=== PATIENT | female | born 1935 | race Caucasian/White ===

== ENCOUNTER 2016-02-27 15:22 | Inpatient (IN) | payer OTHER, BC ==
[~2016-02-27] VITALS: Ht 152.4 cm; Wt 110.1 kg
[~2016-02-27 15:22] MED LIST: APIX1TAB3 PO; ASMIN/60 INH; CALC600T37 PO; CHOL100027 PO; DRON400T PO; METO25TA3 PO; RED600TA PO; TRAM-10 PO
[2016-02-27] MEDS ORDERED: ASMIN/60 INH (16:07)
[2016-02-27] MEDS ORDERED: ASPI81TA28 PO (16:07)
[2016-02-27 16:12] LABS: BASO % 0.3 %; BASO ABS # 0.03 K/uL (0-0.2); COMPLETE YES; EOS % 0.2 %; HEMATOCRIT 29.7 % (37-47); IG% 0.3 %; LYMPH % 11.5 %; MEAN CELL VOLUME 93.4 fL (80-100); MEAN CORPUSCULAR HEMOGLOBIN 29.2 pg (25-34); MEAN CORPUSCULAR HGB CONC 31.3 g/dl (32-36); MEAN PLATELET VOLUME 10.3 fL (7.4-10.4); MONO % 7.6 %; NEUT % 80.1 %; PLATELET COUNT 203 K/uL (130-400); RED BLOOD COUNT 3.18 M/uL (4.2-5.4)
[2016-02-27 16:51] LABS: ALKALINE PHOSPHATASE 72 U/L (45-117); ALT/SGPT 18 U/L (12-78); AST/SGOT 18 U/L (15-37); BLOOD UREA NITROGEN 33 mg/dl (7-18); BUN/CREATININE RATIO 39.1 (10-20); CALCIUM 8.9 mg/dl (8.5-10.1); CARBON DIOXIDE 29 mmol/L (21-32); CHLORIDE 105 mmol/L (98-107); CKMB/CK RATIO 3.6 (0-3.0); CREATININE 0.84 mg/dl (0.60-1.20); GLUCOSE 95 mg/dl (70-99); POTASSIUM 4.1 mmol/L (3.5-5.1); SODIUM 142 mmol/L (136-145)
--- NOTE | 2016-02-27 17:33 | EMERGENCY ROOM VISIT NOTE ---
History Report prepared by Paulo: Alannah Guillermo Under the Supervision of: Dr. Ruben Hudson D.O. First contact with patient: 15:23 Chief Complaint: RECTAL BLEEDING Stated Complaint: RECTAL BLEEDING, RED & SWOLLEN LEGS History of Present Illness The patient is a 80 year old female who presents to the Emergency Room with complaints of persistent rectal bleeding that began yesterday morning. She states that she had three bouts of rectal bleeding today, noting bright red clots. The patient states that she is noting a large amount of blood with bowel movement. She states that one week ago she had home health come in had physical therapy. The patient states that since then she has had left hip and left leg pain. She states that she has had difficulty ambulating due to the pain. The patient states that her home health nurses wanted her leg checked out due to her pain. The patient states that she is on Eloquis for atrial fibrillation and also 81 mg of Aspirin. She states that her last dose of Eloquis was this morning at 1000. The patient states that her rectal bleeding started after a hard bowel movement. Source of History: patient Onset: yesterday morning Position: other (rectal) Quality: other (bleeding) Timing: other (persistent) Note: Associated Symptoms: left hip pain, left leg pain. Review of Systems See HPI for pertinent positives & negatives. A total of 10 systems reviewed and were otherwise negative. Past Medical & Surgical Medical Problems: (1) A-fib (2) Anemia (3) Anemia (4) Anemia (5) Anemia (6) Asthma (7) Bursitis of shoulder, left (8) Hyperparathyroidism (9) Radicular pain in left arm (10) UTI (lower urinary tract infection) Family History No significant family history Social History Smoking Status: Never Smoker Alcohol Use: none Drug Use: none Marital Status: Housing Status: lives alone Occupation Status: retired Current/Historical Medications Scheduled Apixaban (Eliquis), 5 MG PO BID Aspirin (Aspirin Ec), 81 MG PO DAILY Calcium (Calcium), 600 MG PO BID Cholecalciferol (Vitamin D 1000 Unit), 1,000 INTER.UNIT PO DAILY Dronedarone Hcl (Multaq), 400 MG PO BID Mometasone Furoate (Asmanex Twisthaler 60 Met), 1 PUFF INH BID Red Yeast Rice Extract (Red Yeast Rice), 600 MG PO BID Scheduled PRN Tramadol (Ultram), 50 MG PO Q4H PRN for Pain Allergies Coded Allergies: Adhesives (Unverified Allergy, Mild, RASH, 02/27/16) Nitrofurantoin (Unverified Allergy, Mild, RASH, 02/27/16) Sulfa Drugs (Verified Allergy, Mild, 02/27/16) Iodinated Diagnostic Agents (Unverified Allergy, Unknown, RASH, 02/27/16) Uncoded Allergies: TINCTURES (Allergy, Mild, RASH, 12/02/15) Physical Exam Vital Signs Date Time Temp Pulse Resp B/P Pulse Ox O2 Delivery O2 Flow Rate FiO2 02/27/16 16:01 71 02/27/16 15:32 36.4 84 16 143/68 97 Room Air Physical Exam CONSTITUTIONAL/VITAL SIGNS: Reviewed / noted above. GENERAL: Non-toxic in appearance. INTEGUMENTARY: Warm, dry, and [place]. HEAD: Normocephalic. EYES: without scleral icterus or trauma. ENT/OROPHARYNX: clear and moist. LYMPHADENOPATHY/NECK: Is supple without lymphadenopathy or meningismus. RESPIRATORY: Lungs clear and equal. CARDIOVASCULAR: Regular rate and rhythm. GI/ABDOMEN: Soft and nontender. No organomegaly or pulsatile mass. No rebound or guarding. Normal bowel sounds. EXTREMITIES: Warm and well perfused. BACK: No CVA tenderness. RECTAL: Reveals dark brown stool, minimal bleeding at the rectum, likely from hemorrhoids. NEUROLOGICAL: Intact without focal deficits. PSYCHIATRIC: normal affect. MUSCULOSKELETAL: Normally developed with good muscle tone. Medical Decision & Procedures ER Provider Diagnostic Interpretation: X ray results and stated below per my interpretation and radiology interpretation. CHEST ONE VIEW PORTABLE HISTORY: blood in stools COMPARISON: Chest 01/31/2016. FINDINGS: There are low lung volumes. No pneumothorax. Metallic stent overlies the heart. The heart is mildly enlarged. No pleural effusions. Prior cholecystectomy. Mild central pulmonary vascular congestion without overt edema. A few linear densities at the left midlung zone favor subsegmental atelectasis or scarring. IMPRESSION: 1. Stable mild cardiomegaly. 2. Mild central pulmonary vascular congestion without overt edema. Electronically signed by: Mina James M.D. 02/27/2016 5:59 PM Dictated Date/Time: 02/27/2016 5:58 PM Laboratory Results 02/27/16 16:00 Red Blood Count 3.18, Mean Corpuscular Volume 93.4, Mean Corpuscular Hemoglobin 29.2, Mean Corpuscular Hemoglobin Concent 31.3, Mean Platelet Volume 10.3, Neutrophils (%) (Auto) 80.1, Lymphocytes (%) (Auto) 11.5, Monocytes (%) (Auto) 7.6, Eosinophils (%) (Auto) 0.2, Basophils (%) (Auto) 0.3, Neutrophils # (Auto) 8.33, Lymphocytes # (Auto) 1.20, Monocytes # (Auto) 0.79, Eosinophils # (Auto) 0.02, Basophils # (Auto) 0.03 02/27/16 16:00 Test 02/27/16 16:00 02/27/16 17:15 White Blood Count 10.40 K/uL (4.8-10.8) Red Blood Count 3.18 M/uL (4.2-5.4) Hemoglobin 9.3 g/dL (12.0-16.0) Hematocrit 29.7 % (37-47) Mean Corpuscular Volume 93.4 fL (80-100) Mean Corpuscular Hemoglobin 29.2 pg (25-34) Mean Corpuscular Hemoglobin Concent 31.3 g/dl (32-36) Platelet Count 203 K/uL (130-400) Mean Platelet Volume 10.3 fL (7.4-10.4) Neutrophils (%) (Auto) 80.1 % Lymphocytes (%) (Auto) 11.5 % Monocytes (%) (Auto) 7.6 % Eosinophils (%) (Auto) 0.2 % Basophils (%) (Auto) 0.3 % Neutrophils # (Auto) 8.33 K/uL (1.4-6.5) Lymphocytes # (Auto) 1.20 K/uL (1.2-3.4) Monocytes # (Auto) 0.79 K/uL (0.11-0.59) Eosinophils # (Auto) 0.02 K/uL (0-0.5) Basophils # (Auto) 0.03 K/uL (0-0.2) RDW Standard Deviation 58.5 fL (36.4-46.3) RDW Coefficient of Variation 17.2 % (11.5-14.5) Immature Granulocyte % (Auto) 0.3 % Immature Granulocyte # (Auto) 0.03 K/uL (0.00-0.02) Anion Gap 8.0 mmol/L (3-11) Est Creatinine Clear Calc Drug Dose 64.1 ml/min Estimated GFR () 77.2 Estimated GFR (Non- 66.6 BUN/Creatinine Ratio 39.1 (10-20) Calcium Level 8.9 mg/dl (8.5-10.1) Total Bilirubin 0.5 mg/dl (0.2-1) Direct Bilirubin mg/dl (0-0.2) Aspartate Amino Transf (AST/SGOT) 18 U/L (15-37) Alanine Aminotransferase (ALT/SGPT) 18 U/L (12-78) Alkaline Phosphatase 72 U/L (45-117) Total Creatine Kinase 47 U/L (26-192) Creatine Kinase MB 1.7 ng/ml (0.5-3.6) Creatine Kinase MB Ratio 3.6 (0-3.0) Troponin I 0.092 ng/ml (0-0.045) Total Protein 7.1 gm/dl (6.4-8.2) Albumin 3.1 gm/dl (3.4-5.0) Chemistry Specimen Hemolysis Prothrombin Time 12.8 SECONDS (9.0-12.0) Prothromb Time International Ratio 1.2 (0.9-1.1) Activated Partial Thromboplast Time 26.1 SECONDS (21.0-31.0) Partial Thromboplastin Ratio 1.0 Laboratory results as stated above per my review. Medications Administered Medications (Trade) Dose Ordered Sig/Stewart Route Start Time Stop Time Status Last Admin Dose Admin Oxycodone/ Acetaminophen (Percocet 5-325mg Tab) 1 tab NOW ONCE PO 02/27/16 17:45 02/27/16 17:46 DC 02/27/16 17:43 1 TAB ECG Indication: other (hx of atrial fibrillation) Rate (beats per minute): 78 Rhythm: sinus rhythm Findings: LBBB, PAC Comparison ECG Date: 01/07/16 Change: When compared to EKG on 01/07/16, the left bundle branch block is new. ED Course 1524: Previous medical records were reviewed. The patient was evaluated in room B8. A complete history and physical examination was performed. 1707: I reevaluated the patient and she denies any chest pain or trouble breathing, but notes knee pain. I discussed all the exam findings with her and I discussed the treatment plan. She verbalized complete understanding and agreement. She will be evaluated for further treatment. 1715: I discussed the patients case with TREY Vega. He is going to evaluate the patient for further treatment. 1745: Ordered Oxycodone/Acetaminophen 1 tab PO. Medical Decision Differential diagnosis: Etiologies such as diverticulosis, AVM, coagulopathy, colitis, inflammatory bowel disease, malignancy, [place] tear, esophagitis, peptic ulcer disease , variceal bleed, gastritis, epistaxis, fissure, hemorrhoids, as well as others were entertained. This is a 80-year-old female who presents to the ED with a chief complaint of rectal bleeding per the patient states that she seemed to be little constipated yesterday morning and moved her bowels. Since that time she has had some intermittent rectal bleeding. She has had about 3 episodes today. She has also stated that she seen some clots. The patient denies any other significant symptoms. She denies any lightheadedness or dizziness. No chest pains or shortness of breath. Her exam was fairly unremarkable. She does have a rectal exam that appears to show stool in the rectal vault. It is light brown. She does have some gross blood on rectal exam as well. My suspicion is that her bleeding is coming from hemorrhoids. Blood work reveals a stable hemoglobin of 9.3. Her chemistry panel was unremarkable. A troponin was elevated at 0.092. An EKG shows a new left bundle-branch block compared to a previous one. The patient again was assessed and denied chest pains or shortness of breath or any cardiac type symptoms. I spoke with the hospitalist, who will see the patient for further inpatient evaluation. Consults Time Called: 1714 Consulting Physician: TREY Vega Returned Call: [phone] I discussed the patients case with TREY Vega. He is going to evaluate the patient for further treatment. Impression Primary Impression: Elevated troponin Additional Impressions: New onset left bundle branch block (LBBB) Rectal bleed Scribe Attestation The scribe's documentation has been prepared under my direction and personally reviewed by me in its entirety. I confirm that the note above accurately reflects all work, treatment, procedures, and medical decision making performed by me. Departure Information Dispostion Being Evaluated By Hospitalist Referrals Xavi Campbell M.D. (PCP) Problem Qualifiers
[2016-02-27] MEDS ORDERED: OXYCODONE/ACETAMINOPHEN 5-325 TAB PO ONE (17:45)
[2016-02-27 17:48] LABS: INR 1.2 (0.9-1.1); PROTHROMBIN TIME (PATIENT) 12.8 SECONDS (9.0-12.0)
--- NOTE | 2016-02-27 18:01 | DIAGNOSTIC IMAGING REPORT ---
CHEST ONE VIEW PORTABLE HISTORY: blood in stools COMPARISON: Chest 01/31/2016. FINDINGS: There are low lung volumes. No pneumothorax. Metallic stent overlies the heart. The heart is mildly enlarged. No pleural effusions. Prior cholecystectomy. Mild central pulmonary vascular congestion without overt edema. A few linear densities at the left midlung zone favor subsegmental atelectasis or scarring. IMPRESSION: 1. Stable mild cardiomegaly. 2. Mild central pulmonary vascular congestion without overt edema. Electronically signed by: Mina James M.D. 02/27/2016 5:59 PM Dictated Date/Time: 02/27/2016 5:58 PM
[2016-02-27] MEDS ORDERED: POLYETHYLENE (MIRALAX) 17 GM PACK PO PRN (19:00)
[2016-02-27] MEDS ORDERED: ACETAMINOPHEN 325 MG TAB PO PRN (19:00)
[2016-02-27] MEDS ORDERED: NITROGLYCERIN 0.4 MG SL PER TAB CHARGE SL PRN (19:00)
[2016-02-27] MEDS ORDERED: ONDANSETRON INJ 2 MG/ML 2 ML VIAL IV PRN (19:00)
--- NOTE | 2016-02-27 20:06 | DIAGNOSTIC IMAGING REPORT ---
LEFT KNEE 3 VIEWS HISTORY: RED AND SWOLLEN LEGS, LEFT KNEE PAIN COMPARISON: None. FINDINGS: There is no fracture or dislocation. Soft tissue edema throughout the visualized left lower extremity. There are tricompartmental marginal osteophytes with mild cartilage space narrowing at the medial and patellofemoral compartments. There is moderate to severe cartilage space narrowing at the lateral compartment. No significant knee effusion. The bones are osteopenic. No radiopaque foreign bodies. IMPRESSION: 1. No acute fracture or dislocation within the left knee. 2. 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 3. Diffuse subcutaneous edema within the left knee. Electronically signed by: Mina James M.D. 02/27/2016 8:04 PM Dictated Date/Time: 02/27/2016 8:01 PM
[2016-02-27 20:51] VITALS: BP 152/86; PULSE 64; TEMP 36.9; O2SAT 93; Ht 152.4 cm; Wt 110.1 kg
[2016-02-27] MEDS ORDERED: RED YEAST RICE EXTRACT PO SCH (21:00)
[2016-02-27] MEDS: MOMETASONE FUROATE 14 PUFF/1 INHALER INH SCH (22:15)
[2016-02-27] MEDS: DRONEDARONE 400 MG TAB PO SCH (22:15)
[2016-02-27] MEDS: CALCIUM 600MG + VIT D 400 IU TAB PO SCH (22:15)
--- NOTE | 2016-02-27 22:16 | HISTORY & PHYSICAL EXAMINATION ---
DATE OF ADMISSION: 02/27/2016 PCP: Dr. Xavi Campbell. CHIEF COMPLAINT: Left knee pain and rectal bleeding. HISTORY OF PRESENT ILLNESS: Ms. Santos is a 80-year-old lady who underwent TAVR on 01/23/2016. She also has a history of atrial fibrillation, maintained in sinus rhythm on Multaq and anticoagulated with Eliquis, as well as a history of asthma. She is presenting to the Emergency Department complaining of progressively worsening left leg pain that she says really is in the knee over the past approximately 1 month. She mentions that during her TAVR procedure, she apparently had a laceration to the artery in her leg, requiring some repair prior to the procedure. She says after she went home, she continued to have some pain in the extremity which she says has slowly gone from the groin area down the anterior part of her thigh now. At this point, she is complaining only of knee pain, she thinks the knee is swollen to "twice as big as it usually is." She is also complaining of bright red blood per rectum that began yesterday after having a hard bowel movement. She says she had been constipated for the few days prior to this and believes that she may have damaged a hemorrhoid. She mentions in the past she has had hemorrhoids and is also known to have diverticular disease. She continued to take her Eliquis as well as aspirin over the preceding 2 days. Aside from that, the patient denies any recent fever, chills, malaise. She denies any chest pain, palpitation, shortness of breath or cough. Denies any abdominal pain, nausea, vomiting or diarrhea. She denies any hematemesis or melena. She denies any increase in her lower extremity edema. Denies any dysuria, hematuria or increased frequency. She denies any new rash. Her workup in the Emergency Department included basic labs with a CBC showing white blood cell count of 10,400 with 80% neutrophils. Her hemoglobin is 9.3, hematocrit 29.7, which is approximately her baseline H\\T\\H. Platelets were 203,000. Her chemistries showed a sodium of 142, potassium 4.1, chloride 105, bicarbonate 29, BUN was 33, creatinine 0.8, glucose was 95, calcium 8.9, albumin 3.1, protein 7.1, alkaline phosphatase 72, ALT 18, AST 18, total bilirubin 0.5. Her troponin was elevated at 0.092 with a CPK of 47, CK-MB was 1.7. PT was 12.84 for an INR of 1.2, PTT was 26.1. She did have a chest x-ray which the radiologist is reading as showing stable mild cardiomegaly as well as mild central pulmonary vascular congestion without overt edema. Her EKG shows sinus rhythm with a rate of 70 beats per minute and there is a left bundle-branch block pattern present which is not present on an EKG from 01/07/2016. At this point, the patient is being admitted for further workup and management. ALLERGIES: 1. SULFA DRUGS. 2. NITROFURANTOIN. 3. IODINATED RADIOCONTRAST DYE. 4. TINCTURES. 5. ADHESIVES. HOME MEDICATIONS: Include: 1. Multaq 400 mg p.o. twice daily. 2. Eliquis 5 mg p.o. b.i.d. 3. Aspirin 81 mg p.o. daily. 4. Calcium. 5. Vitamin D. 6. Asmanex. 7. Red yeast rice extract. 8. Tramadol p.r.n. for pain. PAST MEDICAL HISTORY: Includes: 1. Atrial fibrillation, on Multaq and anticoagulated with Eliquis. 2. 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 3. Cardiac catheterization in November 2015 showing mild CAD without any critical lesions. 4. Asthma. 5. Morbid obesity. 6. Osteoarthritis. FAMILY HISTORY: Includes premature CAD in her father and both maternal and paternal grandfathers. SOCIAL HISTORY: The patient lives at home alone. She is generally independent but does have someone come to the house to clean for her. She does have visiting nurses as well as visiting PT and OT since her valve replacement in January. She is a lifelong nonsmoker. She does not abuse alcohol or illicit drugs. 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 REVIEW OF SYSTEMS: A 14-system review was conducted and was found to be completely negative except as otherwise indicated above in the history of present illness. PHYSICAL EXAMINATION: VITAL SIGNS: Currently show a temperature of 36.4, pulse 66 and normal sinus on the monitor, respiratory rate 17, oxygen saturation 94% on room air, blood pressure is 173/91. GENERAL: The patient is awake, alert, oriented. She is in no acute distress. HEENT: Sclerae are nonicteric. Mucous membranes are moist. NECK: Trachea is midline. It is difficult to appreciate JVD given the patient's body habitus. RESPIRATORY: Breath sounds are diminished in the bases, I suspect due to body habitus and poor effort. Otherwise, the lungs are essentially clear and she is not in any respiratory distress. CARDIOVASCULAR: S1 and S2 are heard though they are distant. I do not appreciate any murmur. ABDOMEN: Soft, obese, nontender. Bowel sounds are heard. EXTREMITIES: Warm and there is 3+ edema in bilateral lower extremities. There is evidence of chronic venous stasis dermatitis skin changes. MUSCULOSKELETAL: There is no chest wall tenderness. It is difficult to assess the knees due to the patient's body habitus though she does appear to be tender, I really cannot appreciate any effusion. There is no other evidence for acute arthritis in any of the large or small joints aside from the left knee. NEUROLOGIC: The patient is awake and alert. There are no obvious focal deficits. Gait was not assessed. PSYCHIATRIC: The patient is calm and cooperative. She exhibits a normal mood and affect. DIAGNOSTIC INVESTIGATIONS: Labs, imaging and EKG were reviewed as outlined above in the history of present illness. ASSESSMENT AND PLAN: 1. Suspected lower gastrointestinal bleed. The differential includes most likely hemorrhoidal bleeding, would also include diverticular disease. Less likely would include ischemic colitis, peptic ulcer disease, arteriovenous malformation, etc. She reports having multiple previous colonoscopies showing diverticular disease as well as hemorrhoids but otherwise no abnormal findings. At this time, would hold her Eliquis and aspirin. We will repeat an H\\T\\H later this evening and again in the morning. If her hemoglobin remains stable and she has no further bleeding, we will restart her Eliquis and aspirin in the morning and no further GI workup will be pursued. Further recommendations based on her clinical progression. 2. Elevated troponin and a new left bundle-branch block. This patient is presenting with a mildly elevated troponin, she has had no symptoms that could be attributed to acute coronary syndrome. It is possible that her EKG and elevated troponin are due to acute coronary syndrome and at this point we will trend troponin overnight. We will check an echocardiogram in the morning. Further recommendations based on her clinical progress. 3. Left knee pain. We will check an x-ray. The differential would include osteoarthritis versus crystal arthritis versus other, including hemarthrosis. We will continue on her usual home tramadol. 4. Asthma. This is stable and not in exacerbation. We will continue her usual Asmanex. 5. Atrial fibrillation. She is in sinus rhythm on the monitor. We will continue her Multaq, we will be holding Eliquis given GI bleeding. This will be restarted as soon as possible. 6. Mild nonobstructive coronary artery disease on catheterization in November 2015. The patient has been on aspirin which will be held for tonight, hopefully this can be restarted tomorrow. She is not on a statin due to intolerance but is on red rice yeast extract. 7. Deep venous thrombosis prophylaxis is not necessary. She did take Eliquis today. We will institute SCDs if she has a prolonged period without her anticoagulation. 8. Disposition: Admit to telemetry. Total time spent preparing this history and physical was 50 minutes.
[2016-02-27 22:23] LABS: HEMATOCRIT 26.6 % (37-47)
[2016-02-28] VITALS: BP 134/72; PULSE 60; TEMP 36.6; O2SAT 95
[2016-02-28 03:29] VITALS: BP 137/82; PULSE 56; TEMP 36.5; O2SAT 96
[2016-02-28 07:43] VITALS: BP 151/77; PULSE 53; TEMP 36.5; O2SAT 97
[2016-02-28 07:49] LABS: BASO % 0.4 %; BASO ABS # 0.03 K/uL (0-0.2); EOS % 0.6 %; HEMATOCRIT 27.7 % (37-47); IG% 0.4 %; LYMPH % 29.1 %; LYMPH ABS # 2.31 K/uL (1.2-3.4); MEAN CELL VOLUME 94.5 fL (80-100); MEAN CORPUSCULAR HEMOGLOBIN 29.4 pg (25-34); MEAN PLATELET VOLUME 10.7 fL (7.4-10.4); MONO % 6.7 %; NEUT % 62.8 %; PLATELET COUNT 171 K/uL (130-400); RED BLOOD COUNT 2.93 M/uL (4.2-5.4); WHITE BLOOD COUNT 7.94 K/uL (4.8-10.8)
[2016-02-28] MEDS: MOMETASONE FUROATE 14 PUFF/1 INHALER INH SCH ×2 (07:52→20:10)
[2016-02-28] MEDS: CHOLECALCIFEROL 1000 INTER.UNIT TAB PO SCH (07:53)
[2016-02-28] MEDS: DRONEDARONE 400 MG TAB PO SCH ×2 (07:53→20:09)
[2016-02-28] MEDS: CALCIUM 600MG + VIT D 400 IU TAB PO SCH ×2 (07:53→20:09)
[2016-02-28 08:16] LABS: COMPLETE YES
[2016-02-28 08:19] LABS: BUN/CREATININE RATIO 34.1 (10-20); CREATININE 0.71 mg/dl (0.60-1.20); POTASSIUM 3.9 mmol/L (3.5-5.1)
[2016-02-28] MEDS: TRAMADOL HCL 50 MG TAB PO PRN ×3 (09:57→21:05)
[2016-02-28 11:43] VITALS: BP 149/70; PULSE 59; TEMP 36.6; O2SAT 96
--- NOTE | 2016-02-28 13:56 | ECHOCARDIOGRAM REPORT ---
*NOTICE TO RECEIVING REPUBLICAN AGENCY This information is strictly Confidential and protected under [place] law. [place] law prohibits you from making any further disclosure of this information unless further disclosure is expressly permitted by the written consent of the person to whom it pertains or is authorized by law. A general authorization for the release of medical or other information is not sufficient for this purpose. Hospital accepts no responsibility if the information is made available to any other person, INCLUDING THE PATIENT. Interpretation Summary * Name: ARUN ANDREWS Study Date: 02/28/2016 10:19 AM BP: 151/77 mmHg * Patient Location: C.2T\S\S240\S\2 HR: 53 * : 1935 (M/d/yyyy) Gender: Female Height: 60 in * Age: 80 yrs Ethnicity: [place] Weight: 250 lb * Ordering Physician: Ruben Blake * Referring Physician: Self, Referred * Performed By: Rell Montero RCS * * Reason For Study: AMI * BSA: 2.1 m2 * -- Conclusions -- * 1. Normal left ventricular size and systolic function. EF 60-65%. No regional wall motion abnormalities. No left ventricular hypertrophy. Type 2 diastolic dysfunction. * 2. Bioprosthetic aortic valve with acceptable gradients. * 3. There is mild mitral regurgitation. * 4. Normal estimated right ventricular systolic pressure; RVSP 22 mmHg. * 5. Compared to prior study on 01/15/2009, bioprosthetic aortic valve is now present. Procedure Details * A complete two-dimensional transthoracic echocardiogram was performed (2D, M-mode, Doppler and color flow Doppler). * Patient was supine for imaging Left Ventricle * Normal left ventricular size and systolic function. EF 60-65%. No regional wall motion abnormalities. No left ventricular hypertrophy. Type 2 diastolic dysfunction. * Ejection Fraction = 60-65%. Right Ventricle * The right ventricle is normal in size and function. * The right ventricular systolic function is normal as assessed by tricuspid annular plane systolic excursion (TAPSE) (normal >1.5 cm). Atria * The left atrial size is normal. * Right atrial size is normal. * There is no evidence of atrial septal defect, but resolution does not allow assessment for a patent foramen ovale. Mitral Valve * There is mild to moderate mitral annular calcification. * There is no mitral valve stenosis. * There is mild mitral regurgitation. Tricuspid Valve * The tricuspid valve is not well visualized, but is grossly normal. * There is no tricuspid stenosis. * Significant tricuspid regurgitation is absent. Aortic Valve * Bioprosthetic aortic valve with acceptable gradients. * No hemodynamically significant valvular aortic stenosis. * There is no significant aortic regurgitation. Pulmonic Valve * The pulmonary valve is inadequately visualized, but the Doppler data is adequate for interpretation. * There is no pulmonic valvular stenosis. * Trace pulmonic valvular regurgitation. Great Vessels * The aortic root is normal size. Pericardium/Pleural * There is no pericardial effusion. Great Vessels * Normal inferior vena cava size and collapsability with sniff indicates a normal right atrial pressure of 3 mmHg MMode 2D Measurements and Calculations IVSd 1.1 cm IVSs 1.5 cm LVIDd 4.9 cm LVIDs 3.0 cm LVPWd 1.0 cm LVPWs 1.5 cm IVS/LVPW 1.1 FS 39.6 % EDV(Teich) 113.5 ml ESV(Teich) 34.0 ml EF(Teich) 70.0 % EDV(cubed) 118.6 ml ESV(cubed) 26.1 ml EF(cubed) 78.0 % % IVS thick 29.0 % % LVPW thick 47.6 % LV mass(C)d 196.0 grams LV mass(C)dI 95.5 grams/m\S\2 LV mass(C)s 153.2 grams LV mass(C)sI 74.6 grams/m\S\2 CO(Teich) 4.7 l/min CI(Teich) 2.3 l/min/m\S\2 SV(Teich) 79.5 ml SI(Teich) 38.7 ml/m\S\2 CO(cubed) 5.5 l/min CI(cubed) 2.7 l/min/m\S\2 SV(cubed) 92.5 ml SI(cubed) 45.1 ml/m\S\2 Ao root diam 3.1 cm Ao root area 7.7 cm\S\2 LA dimension 4.1 cm asc Aorta Diam 3.3 cm LA/Ao 1.3 LVAd ap4 34.5 cm\S\2 LVLd ap4 8.5 cm EDV(MOD-sp4) 116.0 ml LVAs ap4 16.3 cm\S\2 LVLs ap4 6.2 cm ESV(MOD-sp4) 37.0 ml EF(MOD-sp4) 68.1 % LVAd ap2 34.3 cm\S\2 LVLd ap2 8.5 cm EDV(MOD-sp2) 118.0 ml LVAs ap2 18.5 cm\S\2 LVLs ap2 6.7 cm ESV(MOD-sp2) 44.0 ml EF(MOD-sp2) 62.7 % CO(MOD-sp4) 4.7 l/min CI(MOD-sp4) 2.3 l/min/m\S\2 SV(MOD-sp4) 79.0 ml SI(MOD-sp4) 38.5 ml/m\S\2 CO(MOD-sp2) 4.4 l/min CI(MOD-sp2) 2.1 l/min/m\S\2 SV(MOD-sp2) 74.0 ml SI(MOD-sp2) 36.1 ml/m\S\2 Doppler Measurements and Calculations MV E max adalgisa 125.9 cm/sec MV A max adalgisa 146.2 cm/sec MV E/A 0.86 MV V2 max 150.8 cm/sec MV max PG 9.1 mmHg MV V2 mean 82.0 cm/sec MV mean PG 3.2 mmHg MV V2 VTI 49.7 cm MV P1/2t max adalgisa 149.0 cm/sec MV P1/2t 95.1 msec MVA(P1/2t) 2.3 cm\S\2 MV dec slope 458.8 cm/sec\S\2 MV dec time 0.34 sec Ao V2 max 284.1 cm/sec Ao max PG 32.3 mmHg Ao max PG (full) 24.9 mmHg Ao V2 mean 172.4 cm/sec Ao mean PG 14.0 mmHg Ao mean PG (full) 10.0 mmHg Ao V2 VTI 58.9 cm LV V1 max PG 7.4 mmHg LV V1 mean PG 4.0 mmHg LV V1 max 135.7 cm/sec LV V1 mean 94.5 cm/sec LV V1 VTI 31.6 cm SV(Ao) 455.2 ml SI(Ao) 221.8 ml/m\S\2 TV E max adalgisa 44.4 cm/sec PA V2 max 104.3 cm/sec PA max PG 4.4 mmHg TR max adalgisa 217.2 cm/sec RVSP(TR) 22.0 mmHg RAP systole 3.0 mmHg
[2016-02-28 15:44] VITALS: BP 138/72; PULSE 55; TEMP 36.7; O2SAT 96
--- NOTE | 2016-02-28 16:32 | DIAGNOSTIC IMAGING REPORT ---
BILATERAL LOWER EXTREMITY VENOUS DOPPLER CLINICAL HISTORY: Bilateral leg swelling. Left leg pain status post surgery. COMPARISON STUDY: Right lower extremity venous Doppler April 01, 2012 TECHNIQUE: Sonography of the deep venous system of the bilateral lower extremities was performed. Compression and augmentation were evaluated. FINDINGS: The bilateral common femoral, superficial femoral and popliteal veins were compressible. Augmentation was normal. Flow was shown within the deep calf vessels although evaluation was compromised by suboptimal penetration and lower extremity edema. IMPRESSION: No evidence of deep venous thrombus within the bilateral lower extremities. Electronically signed by: Broderick Treadwell M.D. 02/28/2016 4:30 PM Dictated Date/Time: 02/28/2016 4:29 PM
--- NOTE | 2016-02-28 16:56 | Hospitalist Progress Note ---
Hospitalist Progress Note Date of Service Feb 28, 2016. Subjective Pt evaluation today including: conversation w/ patient, physical exam, chart review, lab review, review of studies, conversation w/ program consultant, review of inpatient medication list Pain: Still c/o severe left knee pain Medications Current Inpatient Medications Medications (Trade) Dose Ordered Sig/Stewart Route Start Time Stop Time Status Last Admin Dose Admin Cholecalciferol (Vitamin D Tab) 1,000 inter.unit DAILY PO 02/28/16 09:00 03/29/16 08:59 02/28/16 07:53 1,000 INTER.UNIT Dronedarone (Multaq Tab) 400 mg BID PO 02/27/16 21:00 03/28/16 20:59 02/28/16 07:53 400 MG Mometasone Furoate (Asmanex 220MCG Inh) 1 puff BID INH 02/27/16 21:00 03/28/16 20:59 02/28/16 07:52 1 PUFF Tramadol HCl (Ultram Tab) 50 mg Q4H PRN PO 02/27/16 19:00 03/28/16 18:59 02/28/16 14:37 50 MG Calcium/Vitamin D (Caltrate Plus Tab) 1 tab BID PO 02/27/16 21:00 03/28/16 20:59 02/28/16 07:53 1 TAB Acetaminophen (Tylenol Tab) 650 mg Q4H PRN PO 02/27/16 19:00 03/28/16 18:59 Ondansetron HCl (Zofran Inj) 4 mg Q6H PRN IV 02/27/16 19:00 03/28/16 18:59 Nitroglycerin (Nitrostat Tab) 0.4 mg UD PRN SL 02/27/16 19:00 03/28/16 18:59 Polyethylene (Miralax Powder Packet) 17 gm DAILY PRN PO 02/27/16 19:00 03/28/16 18:59 Aspirin 81 mg 81 mg QAM PO 02/29/16 09:00 03/30/16 08:59 Furosemide/Syringe (Lasix Inj/ Syringe) 4 ml @ 4 mls/min DAILY IV 02/29/16 09:00 03/30/16 08:59 Warfarin Sodium (Coumadin Tab) 5 mg DAILY@16 PO 02/28/16 16:00 03/29/16 15:59 Objective Vital Signs Date Time Temp Pulse Resp B/P Pulse Ox O2 Delivery O2 Flow Rate FiO2 02/28/16 15:44 36.7 55 18 138/72 96 02/28/16 12:00 Room Air 02/28/16 11:43 36.6 59 18 149/70 96 Room Air 02/28/16 08:00 Room Air 02/28/16 07:43 36.5 53 18 151/77 97 Room Air 02/28/16 04:00 Room Air 02/28/16 03:29 36.5 56 18 137/82 96 Room Air 02/28/16 00:00 Room Air 02/28/16 00:00 36.6 60 18 134/72 95 Room Air 02/27/16 20:51 36.9 64 16 152/86 93 Room Air 02/27/16 19:50 74 16 164/74 96 02/27/16 18:26 66 17 173/91 94 Room Air Physical Exam General Appearance: no apparent distress Eyes: sclerae normal Respiratory/Chest: + pertinent finding (breath sounds diminished in the bases, few crackles above) Cardiovascular: regular rate, rhythm Abdomen: non tender, soft Extremities: + pedal edema Neurologic/Psychiatric: alert, oriented x 3 Laboratory Results Last 24 Hours Test 02/27/16 17:15 02/27/16 22:12 02/28/16 06:53 Prothrombin Time 12.8 SECONDS Prothromb Time International Ratio 1.2 Activated Partial Thromboplast Time 26.1 SECONDS Partial Thromboplastin Ratio 1.0 Hemoglobin 8.5 g/dL 8.6 g/dL Hematocrit 26.6 % 27.7 % Troponin I 0.229 ng/ml 0.635 ng/ml White Blood Count 7.94 K/uL Red Blood Count 2.93 M/uL Mean Corpuscular Volume 94.5 fL Mean Corpuscular Hemoglobin 29.4 pg Mean Corpuscular Hemoglobin Concent 31.0 g/dl Platelet Count 171 K/uL Mean Platelet Volume 10.7 fL Neutrophils (%) (Auto) 62.8 % Lymphocytes (%) (Auto) 29.1 % Monocytes (%) (Auto) 6.7 % Eosinophils (%) (Auto) 0.6 % Basophils (%) (Auto) 0.4 % Neutrophils # (Auto) 4.99 K/uL Lymphocytes # (Auto) 2.31 K/uL Monocytes # (Auto) 0.53 K/uL Eosinophils # (Auto) 0.05 K/uL Basophils # (Auto) 0.03 K/uL RDW Standard Deviation 60.3 fL RDW Coefficient of Variation 17.5 % Immature Granulocyte % (Auto) 0.4 % Immature Granulocyte # (Auto) 0.03 K/uL Red Blood Cell Morphology Unremarkable Sodium Level 143 mmol/L Potassium Level 3.9 mmol/L Chloride Level 106 mmol/L Carbon Dioxide Level 30 mmol/L Anion Gap 7.0 mmol/L Blood Urea Nitrogen 24 mg/dl Creatinine 0.71 mg/dl Est Creatinine Clear Calc Drug Dose 75.1 ml/min Estimated GFR () 94.6 Estimated GFR (Non- 81.6 BUN/Creatinine Ratio 34.1 Random Glucose 76 mg/dl Calcium Level 9.0 mg/dl Assessment and Plan (1) Acute lower GI hemorrhage Assessment & Plan: H&H stable. No further bleeding. Was likely hemorrhoidal. OK to restart anticoagulation. (2) Elevated troponin Assessment & Plan: Likely of not significant. No wall motion abnormalities on echo (3) A-fib Assessment & Plan: She remains in NSR. Per Cardio, will switch to warfarin because of AVR and interaction of Eliquis with Multaq. (4) Left knee DJD Assessment & Plan: Will ask Ortho to eval and consider intra-articular steroids if they agree pain is from OA (5) Asthma Assessment & Plan: Stable, not exacerbated. Continue Asmanex and p.r.n. albuterol. Continued [facility] stay due to: multiple IV medications needed Discharge planning: home with home health
--- NOTE | 2016-02-28 17:00 | CARDIOLOGY CONSULTATION ---
DATE OF CONSULTATION: 02/28/2016 CONSULTING PHYSICIAN: Dr. Ruben Blake. REASON FOR CONSULTATION: Elevated troponin. PRIMARY ADMISSION NURSE: Dr. Pino Ackerman. HISTORY OF PRESENT ILLNESS: Ms. Santos is a pleasant 80-year-old female with a history significant for aortic stenosis status post TAVR on 01/23/2016 at [facility]. She also has a history of paroxysmal atrial fibrillation on antiarrhythmic therapy and anticoagulation in the form of Eliquis. She also has a history of venous insufficiency/lymphedema, asthma, anemia, dyslipidemia. She came to the Emergency Department yesterday due to ongoing left knee pain as well as bright red blood per rectum. She was being visited by home nursing and stated that her left knee hurt. This left knee pain has been present ever since her TAVR on 01/23/2016 and it has failed to improve over the past 10 days. She has had increasing lower extremity edema as well bilaterally, but she believes that her left leg is worse than her right. She apparently did have some vascular injury or some bleeding in her left femoral artery during the TAVR procedure according to her report. She was prescribed Lasix by Dr. Ackerman in January 2016 to be used on an every other day basis. She forgot the directions on how to use Lasix and therefore took it for 10 days and then stopped taking it altogether. She also noted bright red blood per rectum for the past 1.5 days. This has resolved this morning, however. She believes it could be from hemorrhoids and apparently has had diverticulosis diagnosed in the past. When asked about sodium consumption, she stated "I eat my share." She does not add salt to food, but does not necessarily reads labels. She believes that she has lost weight in the past few days. In Emergency Department, troponin levels were ordered and noted to be slightly elevated. They were then cycled overnight and thus far has peaked at 0.635. She denies any chest pain, shortness of breath, orthopnea, syncope, near syncope, palpitations. She had a cardiac catheterization done prior to her TAVR in November 2015 with nonobstructive CAD. During this hospitalization, aspirin and Eliquis have been held, due to the bleeding. REVIEW OF SYSTEMS: As above and review of systems is otherwise negative. PAST MEDICAL HISTORY: 1. Left bundle-branch block following TAVR. 2. Aortic stenosis, status post TAVR on 01/23/2016 at [facility]. 3. Nonobstructive CAD. 4. Dyslipidemia. 5. Chronic lower extremity edema from venous insufficiency and possibly lymphedema. She had been followed at lymphedema clinic in the past. 6. Asthma. 7. Paroxysmal atrial fibrillation, on anticoagulation therapy and antiarrhythmic therapy. 8. Obesity. 9. Osteoporosis. 10. Recurrent UTI. 11. Vitamin D deficiency. 12. Arthritis. 13. Anemia. HOME MEDICATIONS: Include Multaq 400 mg twice daily, red yeast rice, Eliquis 5 mg twice daily, tramadol, aspirin 81 mg daily, Asmanex and Lasix 20 mg every other day; however, she has not been taking it. INPATIENT MEDICATIONS: Include aspirin 81 mg daily, Multaq 400 mg p.o. b.i.d. ALLERGIES: ADHESIVES, IV DYE, NITROFURANTOIN, SULFA ANTIBIOTICS AND TINCTURES. SOCIAL HISTORY: Denies tobacco, alcohol or drug use. She is a . Three children; however, they are not in close contact with her. She does have a granddaughter that checks in on her frequently. She also has great grandchildren. She lives home alone. FAMILY HISTORY: Father at 56 from myocardial infarction. Both grandfathers in their 40s from myocardial infarction. PHYSICAL EXAMINATION: VITAL SIGNS: Temperature 36.6 degrees, heart rate 59 beats per minute, respiration rate 18, blood pressure 149/70 mmHg, oxygen saturation 96% on room air, weight 113.8 kilograms. GENERAL: No acute distress. She is alert. HEENT: Anicteric sclerae. NECK: Elevated JVD shelter to the mandible. Hepatojugular reflux noted. No bruits. Normal carotid upstrokes bilaterally. CARDIAC EXAMINATION: PMI was nonpalpable. There was no ventricular heave. Regular, normal S1, S2. A 1/6 early peaking systolic ejection murmur best heard at the right upper sternal border. No rubs or gallops. LUNGS: Bibasilar rales, otherwise clear. ABDOMEN: Soft, nontender, nondistended, normoactive bowel sounds, no bruits noted. Obese. EXTREMITIES: 2+ radial pulses bilaterally. 2+ dorsalis pedis pulses bilaterally. No cyanosis. Chronic venous stasis changes noted in bilateral lower extremities. 2+ pedal edema and edema involving her feet bilaterally. 1+ bilateral pitting edema above the ankles to the knees. PSYCHIATRIC: Affect appears appropriate. ECG personally reviewed upon presentation demonstrating sinus rhythm with PACs and left bundle-branch block. Left bundle-branch block is new compared to prior ECG here on 01/07/2016; however, left bundle-branch block, was described following her TAVR. Telemetry personally reviewed. Intermittent junctional rhythm. Echocardiogram images were personally reviewed. Normal LV size and systolic function. EF 60%-65%. No regional wall motion abnormalities. Type 2 diastolic dysfunction. Bioprosthetic aortic valve with acceptable gradients. Mild MR. RVSP 22. LABORATORY DATA: Sodium 143, potassium 3.9, BUN 24, creatinine 0.7, troponin 0.635, AST 18, ALT 18. Abdomen 3.1. WBC 7.9, hemoglobin 8.6, was 9.3 on presentation. INR 1.2. Chest x-ray image personally reviewed. Increased vascular markings. Radiology has reviewed the chest x-ray, stable cardiomegaly and central pulmonary vascular congestion without overt edema. ASSESSMENT AND PLAN: 1. Elevated troponins: Etiology uncertain. She did not present with acute coronary syndrome and does not have severe coronary artery disease. She had mild nonobstructive disease noted on November 2015 on cardiac catheterization. Without symptoms concerning for angina or acute coronary syndrome, would not pursue further ischemic evaluation. It could be demand ischemia from worsening anemia. She also appears to be hypervolemic. Not likely to have pulmonary emboli secondary to Eliquis. However, she does have left lower extremity pain and therefore an ultrasound will be checked to definitively rule out deep venous thrombosis. 2. Hypervolemia: She does have a history of venous insufficiency and has not been taking Lasix as prescribed. She also has dietary indiscretion in regards to her sodium consumption. Recommend Lasix 40 mg IV now. Would also discharge on oral Lasix as per Dr. Ackerman's original plan. We discussed low sodium diet and daily weights. 3. Bioprosthetic aortic valve: Would resume antiplatelet therapy in the form of aspirin 81 mg daily now. She has not had any further bright red blood per rectum. Subacute bacterial endocarditis prophylaxis. She is aware of this. Valve appeared to be functioning appropriately on echocardiogram. 4. Paroxysmal atrial fibrillation: Sinus rhythm with intermittent junctional rhythm when bradycardic. Can continue Multaq. Given her bioprosthetic aortic valve would recommend Coumadin in place of Eliquis. She has been on Coumadin in the past. She was agreeable to resume Coumadin in place of Eliquis. Also, Multaq can increase the potency of Eliquis and since she presented with gastrointestinal bleeding, Coumadin may be a better option if she is to remain on Multaq. Will start Coumadin 5 mg daily tonight. She appeared to be relatively well controlled on 5 mg Thursday, Thursday, Thursday with 2.5 mg all other days when she last took Coumadin in 2014. Start with 5 mg while hospitalized; however. 5. Gastrointestinal bleed: As per primary service. Resuming Coumadin today; however, she will not be therapeutic for a few days. 6. Coronary artery disease: She has nonobstructive coronary artery disease. Cardiac catheterization report was reviewed. It demonstrated a mid left anterior descending 20%-30% and ostial obtuse marginal 1 at 40% with proximal right coronary artery 20%-30% and mid right coronary artery 20%. Resume aspirin therapy as above. If no contraindications, would recommend high intensity statin therapy; however, she apparently is intolerant to statin therapy. 7. Hypertension: She is currently hypertensive. Lasix ordered as above, which may improve her blood pressure. 8. Left knee pain: Etiology uncertain. There may have been some bleeding from her procedure. Ultrasound will be ordered to further evaluate. 9. Disposition: Plan of care was discussed with Dr. Blake of the hospitalist service. Cardiology will continue to follow. She should follow up with Dr. Ackerman upon discharge. Thank you for allowing me to participate in care of Ms. Santos.
[2016-02-28] MEDS ORDERED: FUROSEMIDE 40 MG/4 ML VIAL ONE (17:02)
[2016-02-28] MEDS: WARFARIN SOD 5 MG TAB PO SCH (17:05)
[2016-02-28] MEDS: FUROSEMIDE INJ 40 MG in SYRINGE 0 ML IV SCH ×2 (17:05→17:10)
[2016-02-28 19:52] VITALS: BP 147/80; PULSE 62; TEMP 36.7; O2SAT 97
[2016-02-29] VITALS (7 sets, daily range): BP systolic 119–162; BP diastolic 62–77; PULSE 55–61; TEMP 36–36.9; O2SAT 93–96
[2016-02-29] MEDS: MOMETASONE FUROATE 14 PUFF/1 INHALER INH SCH ×2 (07:47→20:36)
[2016-02-29] MEDS: DRONEDARONE 400 MG TAB PO SCH ×2 (07:47→20:37)
[2016-02-29] MEDS: CALCIUM 600MG + VIT D 400 IU TAB PO SCH ×2 (07:47→20:37)
[2016-02-29] MEDS: CHOLECALCIFEROL 1000 INTER.UNIT TAB PO SCH (07:48)
[2016-02-29] MEDS: ASPIRIN 81 MG ECTAB PO SCH (07:48)
--- NOTE | 2016-02-29 08:28 | CARDIOLOGY PROGRESS NOTE ---
DATE: 02/29/2016 DATE: 02/29/2016. TIME: 7:44 a.m. SUBJECTIVE: She refused intravenous Lasix yesterday. She states that she does not want intravenous Lasix because she had a problem with it in the past; however, she does not recall this issue. She is willing to take Lasix as an outpatient as prescribed by Dr. Ackerman, however. She has not had any further bright red blood per rectum. She denies syncope, near syncope, chest pain, shortness of breath, orthopnea or palpitations. OBJECTIVE: VITAL SIGNS: Temperature 36.6 degrees, heart rate 55 beats per minute, respiration rate 18, blood pressure 162/73 mmHg; however, her blood pressure has been intermittently normotensive as well. Oxygen saturation 96% on room air. I's and O's are not complete. Weight 112.9 kg. GENERAL: No acute distress, alert. NECK: Mildly elevated JVD. CARDIAC EXAMINATION: No ventricular heave. Regular, normal S1 and S2. 1/6 early peaking systolic ejection murmur best heard at the right upper sternal border. No rubs or gallops. LUNGS: Bibasilar rales that do not clear with coughing. ABDOMEN: Soft, nontender, nondistended, normoactive bowel sounds. Obese. EXTREMITIES: 1+ bilateral lower extremity edema. Chronic venous stasis changes. No cyanosis. PSYCHIATRIC: Affect appears appropriate. MEDICATIONS: Include aspirin 81 mg daily, Lasix 40 mg IV daily however she is refusing this medication, Coumadin 5 mg daily with her first dose yesterday, Multaq 400 mg p.o. b.i.d. Telemetry personally reviewed. She did have a 5 beat run of ventricular tachycardia at 3:46 a.m. and appeared to be asymptomatic. LABORATORY DATA: There were no labs ordered this morning. Labs will be ordered as noted below. Chart reviewed. There is orthopedics consultation pending as placed by Dr. Blake. ASSESSMENT AND PLAN: 1. Elevated troponin: Her troponin level had not yet peaked and started to improve and therefore another troponin will be ordered for this morning just to document true peak troponin level. She did not present with acute coronary syndrome. No wall motion abnormalities on echo. Could be demand ischemia from worsening anemia with her GI bleed. She does not have any obstructive coronary artery disease on recent cardiac catheterization in November 2015. No further workup at this time from a cardiac perspective. She has not had chest pain or shortness of breath. 2. Hypervolemia: She refuses IV Lasix. We once again discussed the fact that she was to be on Lasix as an outpatient and she is hypervolemic. She continues to decline but is willing to take Lasix 20 mg every other day at home. Based on her current volume status, would recommend daily dosing; however, she plans on taking 20 mg every other day as prescribed at her last cardiology outpatient visit. Low sodium diet has been discussed. 3. Bioprosthetic aortic valve: Continue aspirin 81 mg daily. SBE prophylaxis for dental procedures. Appropriately functioning valve on echo. 4. Paroxysmal atrial fibrillation: Continue Multaq as she is tolerating it well. Coumadin has been started in place of Eliquis due to GI bleed and bioprosthetic aortic valve. Arrangements are being made for her to be followed up in Coumadin clinic through Dr. Ackerman's office. Goal INR 2-3. Her prior dose was 5 mg Thursday, Thursday, Thursday and 2.5 mg all other days. An INR will be arranged for Thursday03/03/2016. 5. Gastrointestinal bleed: No further bleeding. Monitor closely while she resumes anticoagulation therapy. Workup as per primary service. 6. Coronary artery disease: Nonobstructive coronary artery disease on cardiac catheterization in November 2015. She apparently is intolerant to statin therapy; however, I high intensity statin therapy is indicated. Continue antiplatelet therapy. No angina. 7. Hypertension: Blood pressure has improved overall from yesterday, but still intermittently mildly hypertensive. Blood pressure may improve with diuretic therapy; however, she refuses inpatient intravenous Lasix. Also, could consider THALIA inhibitor. 8. Ventricular tachycardia: She did have some paroxysmal ventricular tachycardia, a 5 beat run at 3:46 a.m. this morning. Continue Multaq. Will not start beta axel given the fact that she is bradycardic at rest with heart rates in the 50s. A TSH and magnesium level was ordered at this time to ensure no significant electrolyte abnormality or thyroid issue. 9. Left knee pain: Orthopedics consult is pending. 10. Disposition: Cardiology will sign off at this time. Recommend followup with Dr. Ackerman in the outpatient setting. Coumadin clinic followup is being arranged through Dr. Ackerman's office with an INR on Thursday03/03/2016. Please call for any further questions or concerns.
[2016-02-29] MEDS: FUROSEMIDE INJ 40 MG in SYRINGE 0 ML IV SCH (09:00)
[2016-02-29 10:48] LABS: MAGNESIUM 1.8 mg/dl (1.8-2.4); THYROID STIMULATING HORMONE 1.44 uIu/ml (0.300-4.500)
[2016-02-29] MEDS ORDERED: BUPIVACAINE/EPINEPHRINE 0.5% MPF 1:200,000 30 ML VIAL INFIL ONE (11:30)
[2016-02-29] MEDS ORDERED: METHYLPREDNISOLONE ACETATE 80 MG/ML VIAL IA ONE (11:30)
[2016-02-29] MEDS ORDERED: ETHYL CHLORIDE AER SPR 100 ML CAN EXT ONE (11:30)
[2016-02-29] MEDS: TRAMADOL HCL 50 MG TAB PO PRN (14:38)
--- NOTE | 2016-02-29 16:13 | Hospitalist Progress Note ---
Hospitalist Progress Note Date of Service Feb 29, 2016. Subjective Pt evaluation today including: conversation w/ patient, physical exam, chart review, lab review, review of studies, review of inpatient medication list Pain: still c/o severe left knee pain Medications Current Inpatient Medications Medications (Trade) Dose Ordered Sig/Stewart Route Start Time Stop Time Status Last Admin Dose Admin Cholecalciferol (Vitamin D Tab) 1,000 inter.unit DAILY PO 02/28/16 09:00 03/29/16 08:59 02/29/16 07:48 1,000 INTER.UNIT Dronedarone (Multaq Tab) 400 mg BID PO 02/27/16 21:00 03/28/16 20:59 02/29/16 07:47 400 MG Mometasone Furoate (Asmanex 220MCG Inh) 1 puff BID INH 02/27/16 21:00 03/28/16 20:59 02/29/16 07:47 1 PUFF Tramadol HCl (Ultram Tab) 50 mg Q4H PRN PO 02/27/16 19:00 03/28/16 18:59 02/29/16 14:38 50 MG Calcium/Vitamin D (Caltrate Plus Tab) 1 tab BID PO 02/27/16 21:00 03/28/16 20:59 02/29/16 07:47 1 TAB Acetaminophen (Tylenol Tab) 650 mg Q4H PRN PO 02/27/16 19:00 03/28/16 18:59 Ondansetron HCl (Zofran Inj) 4 mg Q6H PRN IV 02/27/16 19:00 03/28/16 18:59 Nitroglycerin (Nitrostat Tab) 0.4 mg UD PRN SL 02/27/16 19:00 03/28/16 18:59 Polyethylene (Miralax Powder Packet) 17 gm DAILY PRN PO 02/27/16 19:00 03/28/16 18:59 Aspirin 81 mg 81 mg QAM PO 02/29/16 09:00 03/30/16 08:59 02/29/16 07:48 81 MG Furosemide/Syringe (Lasix Inj/ Syringe) 4 ml @ 4 mls/min DAILY IV 02/29/16 09:00 03/30/16 08:59 Warfarin Sodium (Coumadin Tab) 5 mg DAILY@16 PO 02/28/16 16:00 03/29/16 15:59 02/28/16 17:05 5 MG Objective Vital Signs Date Time Temp Pulse Resp B/P Pulse Ox O2 Delivery O2 Flow Rate FiO2 02/29/16 15:38 36.5 59 16 137/68 96 Room Air 02/29/16 12:00 Room Air 02/29/16 11:39 36.9 56 18 122/62 96 Room Air 02/29/16 08:00 Room Air 02/29/16 07:24 36.5 56 16 141/77 95 Room Air 02/29/16 04:00 Room Air 02/29/16 03:52 36.6 55 18 162/73 96 Room Air 02/29/16 00:00 36.5 56 18 119/68 93 Room Air 02/28/16 23:59 Room Air 02/28/16 20:00 Room Air 02/28/16 19:52 36.7 62 18 147/80 97 Physical Exam General Appearance: no apparent distress Respiratory/Chest: + pertinent finding (diminished in the bases, few coarse sounds above, not in distress) Cardiovascular: regular rate, rhythm Abdomen: non tender, soft Extremities: + pedal edema Neurologic/Psychiatric: alert, oriented x 3 Skin: warm/dry Laboratory Results Last 24 Hours Test 02/29/16 09:31 Magnesium Level 1.8 mg/dl Troponin I 0.180 ng/ml Thyroid Stimulating Hormone (TSH) 1.440 uIu/ml Assessment and Plan (1) Acute lower GI hemorrhage Assessment & Plan: No further bleeding. Follow H&H. (2) Elevated troponin Assessment & Plan: Not ACS. No further work up per Cardio. (3) A-fib Assessment & Plan: She remains in NSR. Continue Multaq. On warfarin per Cardio. (4) Left knee DJD Assessment & Plan: Await Ortho eval. (5) Asthma Assessment & Plan: Stable, not exacerbated. Continue Asmanex and p.r.n. albuterol. Discharge planning: home
[2016-02-29 17:05] LABS: HEMATOCRIT 27.6 % (37-47); MEAN CELL VOLUME 94.2 fL (80-100); MEAN CORPUSCULAR HEMOGLOBIN 29.7 pg (25-34); MEAN CORPUSCULAR HGB CONC 31.5 g/dl (32-36); MEAN PLATELET VOLUME 10.3 fL (7.4-10.4); PLATELET COUNT 171 K/uL (130-400); RED BLOOD COUNT 2.93 M/uL (4.2-5.4); WHITE BLOOD COUNT 8.51 K/uL (4.8-10.8)
[2016-02-29] MEDS: WARFARIN SOD 5 MG TAB PO SCH (19:00)
--- NOTE | 2016-02-29 23:53 | ORTHOPEDIC CONSULTATION ---
DATE OF CONSULTATION: 02/29/2016 CONSULTATION AND PROCEDURE NOTE HISTORY OF PRESENT ILLNESS: This is a 80-year-old female seen at the request of Dr. Xavi Campbell and Ruben Blake for left knee pain. Apparently, this 80-year-old female presented to [facility] on 02/27/2016 with history of left knee pain and rectal bleeding. The patient was admitted to the hospital to address her medical concerns and then continued to have left knee pain and orthopedics was consulted at that time. The patient had radiographs obtained and a consultation placed. She states that she has had worsening left knee and leg pain over the last month. She has had difficulty with weightbearing and walking for several months; however, it has become particularly acute over the last 30 days. She states the pain is bad enough that it was radiating from the knee up to the groin and also into the anterior thigh and down to lower leg. She stated she has some swelling of the knee and difficulty ambulating. No trauma to the leg that she can recall. PAST MEDICAL HISTORY: Atrial fibrillation, chronic anticoagulation, asthma, morbid obesity, osteoarthritis, coronary artery disease. 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 ALLERGIES: SULFA DRUGS, NITROFURANTOIN, IODINATED RADIOCONTRAST DYE, TINCTURES AND ADHESIVES. MEDICATIONS: Multaq 400 mg p.o. twice daily, Eliquis 5 mg p.o. b.i.d., aspirin 81 mg p.o. daily, calcium and vitamin D, Asmanex, red yeast rice extract, tramadol p.r.n. for pain. SOCIAL HISTORY: The patient lives at home alone. She has visiting nurses as well as PT and OT. She denies tobacco use. Denies drug use. Denies alcohol use. She is retired clergywoman. PHYSICAL EXAMINATION: GENERAL: This is a pleasant 80-year-old woman who is well nourished, well hydrated, in no acute distress. She is morbidly obese, lying supine in her hospital room bed. A\T\O x3. Speech clear and fluent. Affect is appropriate. EXTREMITIES: Examination of the lower extremities demonstrates chronic venous stasis changes in bilateral lower extremities, symmetric. Dorsalis pedis and posterior tib pulses 2/4. She has 3/4 edema in bilateral lower extremities. Examination of the left knee demonstrates effusion of the left knee, mild to moderate. Tender to palpation diffusely, particularly along the medial and lateral joint lines. No obvious evidence of infection. No erythema, no streaking. She has crepitation with active and passive range of motion of the left knee. She has limited flexion due to pain and soft tissue impingement. Radiographs demonstrate severe degenerative arthropathy of the left knee with bone on bone loss of joint space in the lateral compartment, genu valgum and osteopenia. Also appears to be slight effusion. IMPRESSION: 1. Left knee degenerative joint disease. 2. Genu valgum. 3. Effusion, left knee. RECOMMENDATIONS: At this time, patient will be given a steroid injection in her left knee, weightbear as tolerated, ice p.r.n. and follow up in clinic for reassessment and continued care with Dr. Mantilla. PROCEDURE IN DETAIL: After obtaining verbal consent from the patient, the patient underwent sterile prep of the left knee with Betadine and alcohol and then the left knee was injected with 1 mL of 80 mg Depo-Medrol and 5 mL of 0.5% bupivacaine with epinephrine under sterile technique. She tolerated the injection well. Sterile Band-Aid was placed over the site and the patient was given postinjection instructions. Thank you for the opportunity to consult in the care of this patient.
[2016-03-01] VITALS (7 sets, daily range): BP systolic 130–164; BP diastolic 67–85; PULSE 59–67; TEMP 36.5–37; O2SAT 92–98
[2016-03-01 06:45] LABS: INR 1.1 (0.9-1.1); PROTHROMBIN TIME (PATIENT) 12.3 SECONDS (9.0-12.0)
[2016-03-01 07:06] LABS: BUN/CREATININE RATIO 28.6 (10-20); CALCIUM 8.7 mg/dl (8.5-10.1); CREATININE 0.82 mg/dl (0.60-1.20); POTASSIUM 4.2 mmol/L (3.5-5.1)
[2016-03-01] MEDS: MOMETASONE FUROATE 14 PUFF/1 INHALER INH SCH ×2 (07:50→19:34)
[2016-03-01] MEDS: CALCIUM 600MG + VIT D 400 IU TAB PO SCH ×2 (07:51→19:33)
[2016-03-01] MEDS: DRONEDARONE 400 MG TAB PO SCH ×2 (07:51→19:34)
[2016-03-01] MEDS: CHOLECALCIFEROL 1000 INTER.UNIT TAB PO SCH (07:51)
[2016-03-01] MEDS: ASPIRIN 81 MG ECTAB PO SCH (07:51)
[2016-03-01] MEDS: FUROSEMIDE INJ 40 MG in SYRINGE 0 ML IV SCH (07:52)
[2016-03-01] MEDS: WARFARIN SOD 5 MG TAB PO SCH (19:33)
--- NOTE | 2016-03-01 19:59 | Hospitalist Progress Note ---
Hospitalist Progress Note Date of Service Mar 01, 2016. Subjective Pt evaluation today including: conversation w/ patient, physical exam, chart review, lab review, review of studies, review of inpatient medication list no acute event overnight Objective Vital Signs Date Time Temp Pulse Resp B/P Pulse Ox O2 Delivery O2 Flow Rate FiO2 03/01/16 19:22 36.5 67 16 164/85 97 Room Air 03/01/16 16:00 Room Air 03/01/16 15:43 36.8 65 16 132/73 95 Room Air 03/01/16 12:00 Room Air 03/01/16 11:54 36.6 65 16 134/73 92 03/01/16 08:00 Room Air 03/01/16 07:27 36.7 61 18 159/67 98 03/01/16 04:14 36.9 60 16 146/79 94 Room Air 03/01/16 04:00 Room Air 03/01/16 00:43 37.0 62 16 130/77 94 02/29/16 23:59 Room Air 02/29/16 20:00 Room Air 02/29/16 20:00 36.6 Physical Exam General Appearance: no apparent distress Eyes: normal inspection ENT: hearing grossly normal Neck: supple Respiratory/Chest: chest non-tender, lungs clear Cardiovascular: + irregularly irregular Abdomen: normal bowel sounds, non tender Extremities: non-tender Neurologic/Psychiatric: oriented x 3 Skin: normal color Laboratory Results Last 24 Hours Test 03/01/16 06:21 Prothrombin Time 12.3 SECONDS Prothromb Time International Ratio 1.1 Sodium Level 143 mmol/L Potassium Level 4.2 mmol/L Chloride Level 106 mmol/L Carbon Dioxide Level 29 mmol/L Anion Gap 8.0 mmol/L Blood Urea Nitrogen 23 mg/dl Creatinine 0.82 mg/dl Est Creatinine Clear Calc Drug Dose 64.8 ml/min Estimated GFR () 79.4 Estimated GFR (Non- 68.5 BUN/Creatinine Ratio 28.6 Random Glucose 83 mg/dl Calcium Level 8.7 mg/dl Assessment and Plan Patient is 80-year-old female with PMH of aortic stenosis status post TAVR on paroxysmal atrial fibrillation on antiarrhythmic therapy and anticoagulation in the form of Eliquis, asthma, anemia, dyslipidemia who presented to ER due to left knee pain and bright red blood per rectum 1 Acute lower GI bleeding: resolved, H@H is stable, outpatient f/u 2 elevated troponin: chain saw mechanic consult, unlikely ACS, no further work up 3 A fib: due to GI bleeding, will stop eliquis and start warfarin. 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 inform these messages to nurse.
[2016-03-02 03:37] VITALS: BP 153/77; PULSE 60; TEMP 36.8; O2SAT 95
--- NOTE | 2016-03-02 07:30 | Discharge Instructions ---
Discharge Instructions Admission Reason for Admission: Acute Lower Gi Hemorrhage Discharge Discharge Diagnosis / Problem: acute lower GI bleeding, left knee OA, A fib Discharge Goals Goal(s): Decrease discomfort, Improve function, Increase independence, Improve disease control, Learn about illness, Diagnostic testing, Therapeutic intervention Activity Recommendations Activity Limitations: resume your previous activity . Instructions / Follow-Up Instructions / Follow-Up please take Coumadin 5mg daily, Coumadin clinic followup is being arranged through Dr. Ackerman's office with an INR on Thursday03/03/2016, followup with Dr. Ackerman in the outpatient setting.the goal of INR is 2-3. You should take lasix 20mg every day, please f/u Dr. Ackerman in the outpatient setting in one week please f/u orthopedia in 2 week for your left knee OA please f/u PCP in 2 weeks if you have any abnormal bleeding, please call your PCP or go to ER. Current Hospital Diet Patient's current hospital diet: AHA Diet (Heart Healthy) Discharge Diet Recommended Diet: AHA Diet (Heart Healthy), Low Sodium Diet (2gm Na) Pending Studies Studies pending at discharge: no Medical Emergencies . Who to Call and When: Medical Emergencies: If at any time you feel your situation is an emergency, please call 911 immediately. . Non-Emergent Contact Non-Emergency issues call your: Primary Care Provider . . "Provider Documentation" section prepared by Nelly Baez. VTE Core Measure Inpt VTE Proph given/why not?: Other Anticoagulation
--- NOTE | 2016-03-02 07:53 | Discharge Summary ---
Discharge Summary Admission Date: Feb 27, 2016 at 19:05 Discharge Disposition: Home with services Principal Diagnosis: acute lower GI bleeding, left knee OA Problems/Secondary Diagnoses: A fib, elevated troponin, asthma Immunizations: Have You Had Influenza Vaccine: Yes Influenza Vaccine Date: Nov 15, 2008 History of Tetanus Vaccine?: Yes History of Pneumococcal: Yes Pneumococcal Date: Feb 20, 2009 History of Hepatitis B Vaccine: No Medication Reconciliation New Medications: Furosemide (Lasix) 20 Mg Tab 20 MG PO Q2D for 30 Days, #15 TAB Warfarin Sod (Coumadin) 5 Mg Tab 5 MG PO DAILY@16 for 30 Days, #30 TAB please go to coumadin clinic tomorrow to check INR and patch setter will asjust your coumdin dose according your INR level. Continued Medications: Aspirin (Aspirin Ec) 81 Mg Tab 81 MG PO DAILY Calcium (Calcium) 600 Mg Tab 600 MG PO BID Cholecalciferol (Vitamin D 1000 Unit) 1,000 Unit Cap 1000 INTER.UNIT PO DAILY, CAP Dronedarone Hcl (Multaq) 400 Mg Tab 400 MG PO BID Mometasone Furoate (Asmanex Twisthaler 60 Met) 220 Mcg/Inh Aer 1 PUFF INH BID Red Yeast Rice Extract (Red Yeast Rice) 600 Mg Tab 600 MG PO BID Tramadol (Ultram) 50 Mg Tab 50 MG PO Q4H PRN for Pain, TAB Discontinued Medications: Apixaban (Eliquis) 5 Mg Tab 5 MG PO BID Discharge Exam patient was seen and exam on the day of discharge, patient has no complains, no SOB, no chest pain, no nausea, no vomiting, patient is stable to discharge home with home services. Physical Exam: General Appearance: no apparent distress Eyes: normal inspection ENT: hearing grossly normal Neck: supple Respiratory/Chest: chest non-tender, lungs clear, normal breath sounds Cardiovascular: + irregularly irregular Abdomen / GI: normal bowel sounds, non tender, soft Extremities: no calf tenderness Neurologic/Psychiatric: no motor/sensory deficits, oriented x 3 Skin: normal color Hospital Course Patient is 80-year-old female with PMH of aortic stenosis status post TAVR on paroxysmal atrial fibrillation on antiarrhythmic therapy and anticoagulation in the form of Eliquis, asthma, anemia, dyslipidemia who presented to ER due to left knee pain and bright red blood per rectum 1 Acute lower GI bleeding: most likely hemorrhoidal bleeding, would also include diverticular disease. patient reports having multiple previous colonoscopies showing diverticular disease as well as hemorrhoids but otherwise no abnormal findings. During hospitalization, she has no more active bleeding. H@H is stable , outpatient f/u PCP 2 elevated troponin: patch setter consult, unlikely ACS, no further work up 3 A fib: due to GI bleeding, will stop eliquis and start warfarin. continue Multaq. plan to take Coumadin 5mg daily after discharge, Coumadin clinic followup is being arranged through Dr. Ackerman's office with an INR on Thursday, followup with Dr. Ackerman in the outpatient setting with the goal of INR is 2-3. 4 hypervolemia: Retention Representative in hospital suggested to take lasix 20mg daily, but patient refused, only agreed to take lasix 20mg every other day as Dr. Ackerman prescribed before, patient need to f/u Dr. Ackerman as outpatient to adjust lasix dose. 5 left knee pain: orthopedia considered OA and gave her a steroid injection, her pain is resolved, outpatient f/u [facility]th[facility] 6 asthma: stable, continue home medication Total Time Spent: Greater than 30 minutes This includes examination of the patient, discharge planning, medication reconciliation, and communication with other providers. Discharge Instructions Please refer to the electronic Patient Visit Report (Discharge Instructions) for additional information. Additional Copies To Pino Ackerman M.D.; Xavi Campbell M.D.
[2016-03-02] MEDS: ASPIRIN 81 MG ECTAB PO SCH (07:55)
[2016-03-02] MEDS: CHOLECALCIFEROL 1000 INTER.UNIT TAB PO SCH (07:55)
[2016-03-02] MEDS: CALCIUM 600MG + VIT D 400 IU TAB PO SCH (07:55)
[2016-03-02] MEDS: FUROSEMIDE INJ 40 MG in SYRINGE 0 ML IV SCH (07:56)
[2016-03-02] MEDS: DRONEDARONE 400 MG TAB PO SCH (07:56)
[2016-03-02] MEDS: MOMETASONE FUROATE 14 PUFF/1 INHALER INH SCH (07:56)
[2016-03-02 08:02] LABS: INR 1.3 (0.9-1.1); PROTHROMBIN TIME (PATIENT) 13.9 SECONDS (9.0-12.0)
[2016-03-02 08:03] VITALS: BP 168/72; PULSE 59; TEMP 36.8; O2SAT 95
[2016-03-02] MEDS ORDERED: FURO-85 PO (08:36)
[2016-03-02] MEDS ORDERED: CMD5 PO (08:36)
[2016-03-02 10:02] VITALS: BP 168/72; PULSE 59; TEMP 36.8; O2SAT 95
--- NOTE | 2016-03-03 00:27 | Cardiology Consultation ---
Cardiology Consultation Date of Consultation: Feb 28, 2016. Reason for Consultation: Elevated troponin, new LBBB on EKG Pt evaluation today including: conversation w/ patient, physical exam, chart review, lab review History of Present Illness 80 year old female who present to ED with GI bleed and ongoing left knee pain Her cardiac history is significant of aortic stenosis s/p TAVR on 01/23/16 with noted new LBBB at the time, atrial fibrillation treated with anti-arrhythmic Multaq and anticoagulant Eliquis, non-obstructive CAD (as reported from her cardiac catheterization prior to the TAVR procedure), HLD. Other past medical problems include obesity, venous insufficiency/lymphedema, asthma, OA, oteoporosis, anemia From a cardiology standpoint, she is a known patient to Dr. Ackerman Patient was admitted to hospital with BRB NC and persistent and worsening left knee pain since her TAVR procedure in mid January, associated with worsening edema. The bleeding she noted was occurred for the last day and half, and was noted to be both on the toilet paper and in the bowl. She believes it is likely secondary to her hemorrhoids. She also mentions a history of diverticular disease. She denies further bleeding per rectum as of this morning. With regards to her edema, she was previously prescribed Lasix EOD by Dr. Ackerman this past January but the patient was intermittently compliant as she says she forgot the instructions given to her. She then proceeded to take it for 10 days , only to completely discontinue it as she said there was no improvement in her edema. Cardiology was consulted in view of elevated troponin level ordered while in the Emergency Department. Serial troponin subsequently taken with peak troponin of 0.635 Aside from knee pain, patient is currently comfortable. She denies any chest pain, palpitations or heart racing. She has shortness of breath at rest, but says that she hasn't been ambulating much since her surgery so is unable to comment on toleration upon exertion She denies dizziness, syncope or prescyncopal episodes. She ambulates with a walker at home and denies recent falls. She claims to have lost weight recently, and denies orthopnea or PND. ROS was otherwise unremarkable: no fevers, no URI symptoms. No abdominal pain, bowel movements normal without further bleeding, no UTI symptoms. No headaches. No skin rashes. Family History No significant family history Father from [place] at 56YO, Maternal and paternal grandfathers from [place] at ~40sYO Social History Smoking Status: Never Smoker History of Alcohol Use: No She is a never smoker and denies alcohol or recreational drug use. She is a and lives alone with her cat. Her three children live away from her, but her granddaughter checks in via phone a couple times per week. Review of Systems Constitutional: + weight loss, No chills, No fever, No sweats, No weakness Respiratory: No cough, No dyspnea at rest, No wheezing Cardiac: + edema, No PND, No chest pain, No orthopnea, No palpitations Abdomen: + GI bleeding, No constipation, No diarrhea, No nausea, No pain, No vomiting Female : No dysuria, No hematuria, No urinary frequency Skin: No bleeding, No new/changing skin lesions, No rash All Other Systems: Reviewed and Negative Allergies Coded Allergies: Adhesives (Unverified Allergy, Mild, RASH, 02/27/16) Nitrofurantoin (Unverified Allergy, Mild, RASH, 02/27/16) Sulfa Antibiotics (Verified Allergy, Mild, "sulfa drugs", 02/28/16) Iodinated Diagnostic Agents (Unverified Allergy, Unknown, RASH, 02/27/16) Uncoded Allergies: TINCTURES (Allergy, Mild, RASH, 12/02/15) Medications Current Inpatient Medications Medications (Trade) Dose Ordered Sig/Stewart Route Start Time Stop Time Status Last Admin Dose Admin Cholecalciferol (Vitamin D Tab) 1,000 inter.unit DAILY PO 02/28/16 09:00 03/29/16 08:59 02/28/16 07:53 1,000 INTER.UNIT Dronedarone (Multaq Tab) 400 mg BID PO 02/27/16 21:00 03/28/16 20:59 02/28/16 07:53 400 MG Mometasone Furoate (Asmanex 220MCG Inh) 1 puff BID INH 02/27/16 21:00 03/28/16 20:59 02/28/16 07:52 1 PUFF Tramadol HCl (Ultram Tab) 50 mg Q4H PRN PO 02/27/16 19:00 03/28/16 18:59 02/28/16 14:37 50 MG Calcium/Vitamin D (Caltrate Plus Tab) 1 tab BID PO 02/27/16 21:00 03/28/16 20:59 02/28/16 07:53 1 TAB Acetaminophen (Tylenol Tab) 650 mg Q4H PRN PO 02/27/16 19:00 03/28/16 18:59 Ondansetron HCl (Zofran Inj) 4 mg Q6H PRN IV 02/27/16 19:00 03/28/16 18:59 Nitroglycerin (Nitrostat Tab) 0.4 mg UD PRN SL 02/27/16 19:00 03/28/16 18:59 Polyethylene (Miralax Powder Packet) 17 gm DAILY PRN PO 02/27/16 19:00 03/28/16 18:59 Physical Exam Vital Signs Past 12 Hours Date Time Temp Pulse Resp B/P Pulse Ox O2 Delivery O2 Flow Rate FiO2 02/28/16 12:00 Room Air 02/28/16 11:43 36.6 59 18 149/70 96 Room Air 02/28/16 08:00 Room Air 02/28/16 07:43 36.5 53 18 151/77 97 Room Air 02/28/16 04:00 Room Air 02/28/16 03:29 36.5 56 18 137/82 96 Room Air Constitutional: General Apperance: heathly-appearing, well-nourished, well-developed, obese Level of Distress: NAD Ambulation: limited ambulation Psychiatric: Mental Status: active & alert, normal mood, normal affect Head: normocephalic, atraumatic Neck: supple, trachea midline, no masses, FROM Lungs: Respiratory effort: no dyspnea, good air movement Auscultation: breath sounds normal, CTA except as noted, no wheezing, no rales/crackles, no rhonchi Cardiovascular: Heart Auscultation: RRR, normal S1, normal S2, pertinent finding (Jugular venous distension midway to mandible) Peripheral Pulses: Bruits: none appreciated Carotid Pulse: normal on the left, normal on the right Abdomen: Bowel Sounds: normal Inspection & Palpation: soft, non-distended, no tenderness, guarding & rebound, no masses Extremities: no cyanosis, no ulcers, edema Data Laboratory Results: Last 24 Hours Test 02/27/16 16:00 02/27/16 17:15 02/27/16 22:12 02/28/16 06:53 White Blood Count 10.40 K/uL 7.94 K/uL Red Blood Count 3.18 M/uL 2.93 M/uL Hemoglobin 9.3 g/dL 8.5 g/dL 8.6 g/dL Hematocrit 29.7 % 26.6 % 27.7 % Mean Corpuscular Volume 93.4 fL 94.5 fL Mean Corpuscular Hemoglobin 29.2 pg 29.4 pg Mean Corpuscular Hemoglobin Concent 31.3 g/dl 31.0 g/dl Platelet Count 203 K/uL 171 K/uL Mean Platelet Volume 10.3 fL 10.7 fL Neutrophils (%) (Auto) 80.1 % 62.8 % Lymphocytes (%) (Auto) 11.5 % 29.1 % Monocytes (%) (Auto) 7.6 % 6.7 % Eosinophils (%) (Auto) 0.2 % 0.6 % Basophils (%) (Auto) 0.3 % 0.4 % Neutrophils # (Auto) 8.33 K/uL 4.99 K/uL Lymphocytes # (Auto) 1.20 K/uL 2.31 K/uL Monocytes # (Auto) 0.79 K/uL 0.53 K/uL Eosinophils # (Auto) 0.02 K/uL 0.05 K/uL Basophils # (Auto) 0.03 K/uL 0.03 K/uL RDW Standard Deviation 58.5 fL 60.3 fL RDW Coefficient of Variation 17.2 % 17.5 % Immature Granulocyte % (Auto) 0.3 % 0.4 % Immature Granulocyte # (Auto) 0.03 K/uL 0.03 K/uL Sodium Level 142 mmol/L 143 mmol/L Potassium Level 4.1 mmol/L 3.9 mmol/L Chloride Level 105 mmol/L 106 mmol/L Carbon Dioxide Level 29 mmol/L 30 mmol/L Anion Gap 8.0 mmol/L 7.0 mmol/L Blood Urea Nitrogen 33 mg/dl 24 mg/dl Creatinine 0.84 mg/dl 0.71 mg/dl Est Creatinine Clear Calc Drug Dose 64.1 ml/min 75.1 ml/min Estimated GFR () 77.2 94.6 Estimated GFR (Non- 66.6 81.6 BUN/Creatinine Ratio 39.1 34.1 Random Glucose 95 mg/dl 76 mg/dl Calcium Level 8.9 mg/dl 9.0 mg/dl Total Bilirubin 0.5 mg/dl Direct Bilirubin mg/dl Aspartate Amino Transf (AST/SGOT) 18 U/L Alanine Aminotransferase (ALT/SGPT) 18 U/L Alkaline Phosphatase 72 U/L Total Creatine Kinase 47 U/L Creatine Kinase MB 1.7 ng/ml Creatine Kinase MB Ratio 3.6 Troponin I 0.092 ng/ml 0.229 ng/ml 0.635 ng/ml Total Protein 7.1 gm/dl Albumin 3.1 gm/dl Chemistry Specimen Hemolysis Prothrombin Time 12.8 SECONDS Prothromb Time International Ratio 1.2 Activated Partial Thromboplast Time 26.1 SECONDS Partial Thromboplastin Ratio 1.0 Red Blood Cell Morphology Unremarkable Imaging: EKG: Telemetry reviewed: Assessment & Plan 80 year old female presented to hospital with GI bleed and left knee pain, with elevated troponin and new LBBB on background of TAVR performed one month ago and non-obstructive CAD Assessment and Plan: 1. GI bleed - During this hospitalization, aspirin and Eliquis have been held due to the bleeding. - Bleeding has resolved and it may be safe to resume if H/H are stable - However, given inducing effect of Multaq on Eliquis, in view of GI bleeding, it would be recommended switching the Eliquis to warfarin 2. CAD - Elevated troponin peaking at 0.63 and new LBBB seen on EKG - EKG reviewed: normal sinus rhythm with PACs and left bundle-branch block. Left bundle-branch block is new compared to prior ECG here on 01/07/2016. However it was reported following her TAVR - In absence of anginal/acute coronary symptoms, and cardiac catheterization performed prior to TAVR showing non-obstructive CAD, it is unlikely that patient 's elevated troponin is secondary to [place]. It is more likely that the elevated troponin are secondary to demand ischemia caused by anemia secondary to the GI bleed. Unlikely to be PE given usage of Eliquis. - Statin therapy recommended but previously not tolerated by patient - Recommend echo for assessment of cardiac function 3. A.fib - Patient is in normal sinus rhythm - Continue with Multaq antiarrhythmic - Anticoagulation recommended to be switched from Eliquis to warfarin - Given resolution of GI bleeding, recommend starting patient on warfarin 5mg today, as INR will not reach therapeutic levels for several days. 4. [place] - [place] [facility] [place] - Recommend restarting aspirin 81mg today in view of continuing antiplatelet in setting of bioprosthetic valve. - Patient had previously discussed with Dr. Ackerman re: switching from Eliquis to warfarin post surgery, she is agreeable to do so. - Her previous regimen of warfarin entailed 5mg M,W,F and 2.5mg T,TH,S,Alfonso prior to switching to Eliquis, which she may be able to resume upon discharge depending on INR levels. 5. Left knee pain - Patient's TAVR procedure was complicated a left femoral artery tear, therefore evaluation for hematoma or hemarthrosis may be recommended - It is unlikely that patient has clot given usage of Eliquis - Recommend U/S doppler of lower extremity to rule out DVT, hematoma, hemarthrosis as cause of knee pain. 6. Hypervolemia - Previous insufficiency worsened as of late. - Patient has not been compliant with furosemide regimen, and admits to non- restrictive sodium intake - Recommend Lasix 40 mg IV now, which can be switched to oral furosemide EOD as per Dr. Ackerman's original plan. 7. Hypertension - Furosemide may improve her elevated blood pressure. - Other antihypertensives such as an courtney-inhibitor may also be considered as an adjunct if necessary 8. Disposition - Upon discharge, patient to follow up with cardiology, Dr. Ackerman - Follow up in warfarin/INR clinic is also needed. ADDENDUM: please see my note for full attending cardiology consultation.
== END 2016-03-02 10:20 | disposition home health service (06) | DRG 378 ==
LOC: ENRESERVDT → ENRESERVTM → EDBD 15:22 → C.EDB 15:25 → C.2T 19:05
PROVIDERS: ADMIT Hospitalist; ATTEND Internal Medicine
PROC: 3E0U3BZ Introduction of Anesthetic Agent into Joints, Percutaneous Approach (ICD-10-PCS; principal; 2016-02-29)
DX: K92.2 Gastrointestinal hemorrhage, unspecified (principal); Z68.42 Body mass index [BMI] 45.0-49.9, adult; I48.0 Paroxysmal atrial fibrillation; I44.7 Left bundle-branch block, unspecified; M17.12 Unilateral primary osteoarthritis, left knee; R60.0 Localized edema; I25.10 Atherosclerotic heart disease of native coronary artery without angina pectoris; E66.01 Morbid (severe) obesity due to excess calories; E87.70 Fluid overload, unspecified; J45.909 Unspecified asthma, uncomplicated; M81.0 Age-related osteoporosis without current pathological fracture; Z79.01 Long term (current) use of anticoagulants; Z79.82 Long term (current) use of aspirin; Z79.899 Other long term (current) drug therapy; Z95.2 Presence of prosthetic heart valve

== ENCOUNTER → 2016-03-26 | Outpatient (CLI) | payer OTHER, BC ==
[~2016-03-26] MED LIST changes: +ASPI81TA28 PO; +CALC500C70 PO; +CMD5 PO; +FURO-85 PO; +LSX20 PO; -METO25TA3 PO; +POLYCAP4 PO
[2016-03-26 14:34] LABS: INR 2.5 (0.9-1.1); PROTHROMBIN TIME (PATIENT) 27.5 SECONDS (9.0-12.0)
--- NOTE | 2016-05-13 06:19 | EDITING REQUIRED CODING QUERY ---
Valid Physician Order Needed A valid physician order must be submitted in order to properly bill for the service(s) provided, including date of service(s), valid diagnosis, and physician signature. If these tests are done on a recurring basis the original physician order must be submitted in order to code and bill for the service(s) provided. Please fax us the original, signed physician order so that we may expedite billing to [phone] DOS 03/26/16 * PTINR Thank you Lisseth Dickson Health Information Management
== END | disposition home or self-care (01) ==
LOC: C.LAB 14:17
PROVIDERS: ATTEND Internal Medicine Pulmonary Disease
DX: I48.0 Paroxysmal atrial fibrillation (principal); M81.0 Age-related osteoporosis without current pathological fracture; I35.0 Nonrheumatic aortic (valve) stenosis

== ENCOUNTER → 2016-04-17 | Outpatient (CLI) | payer OTHER, BC ==
[~2016-04-17] MED LIST changes: -APIX1TAB3 PO; -CALC500C70 PO; -LSX20 PO; -POLYCAP4 PO
[2016-04-17 14:10] LABS: BLOOD UREA NITROGEN 28 mg/dl (7-18); GLUCOSE 91 mg/dl (70-99)
[2016-04-17 14:11] LABS: CALCIUM 9.3 mg/dl (8.5-10.1); CARBON DIOXIDE 26 mmol/L (21-32); CHLORIDE 104 mmol/L (98-107); CREATININE 0.81 mg/dl (0.60-1.20); SODIUM 140 mmol/L (136-145)
== END | disposition home or self-care (01) ==
LOC: C.LAB1850 11:16
PROVIDERS: ATTEND Internal Medicine Cardiovascular Disease
DX: D64.9 Anemia, unspecified (principal); I48.91 Unspecified atrial fibrillation

== ENCOUNTER → 2016-04-21 | Outpatient (CLI) | payer OTHER, BC ==
--- NOTE | 2016-04-29 09:49 | POLYSOMNOGRAPH REPORT ---
CLINICAL DATA: A 80-year-old female with BMI of 52.04, referred for possible sleep apnea. She recently had overnight pulse oximetry done which showed oxygen desaturation and was started on oxygen at night. On the evening of 04/21/2016, a home sleep apnea test was performed using a [employer] type 3 monitor. RECORDING RESULTS: Total recording time was 10 hours. Patient estimated sleep time and patient monitoring time was 9.2 hours. RESPIRATORY DATA: Mild sleep apnea was documented. The MANDIE was 8.2. There were 37 obstructive apneic episodes and 38 hypopneic episodes. The longest respiratory event was 72 seconds. OXIMETRY DATA: Severe oxygen desaturation was seen. Oxygen laura was 59%. Mean saturation was 90%. Time below 89% was 50 minutes. HEART RATE DATA: Heart rates ranged from 49-58 beats per minute. SNORING DATA: Snoring was record throughout the night. POULTRY FARMER'S COMMENTS: Hypopneas and apneas were seen with profound desaturations. Given the timing of the events and the cyclical nature, they appeared to be occurring during episodes of REM sleep. IMPRESSION: Mild sleep apnea/hypopnea with severe nocturnal hypoxemia. RECOMMENDATIONS: This patient may benefit from a repeat sleep study with CPAP. [place]
== END | disposition home or self-care (01) ==
LOC: C.NEUR 11:47
PROVIDERS: ATTEND Internal Medicine Pulmonary Disease
DX: G47.34 Idiopathic sleep related nonobstructive alveolar hypoventilation (principal)

== ENCOUNTER → 2016-06-17 | Outpatient (CLI) | payer OTHER, BC ==
[~2016-06-17] MED LIST changes: +APIX1TAB3 PO; +CALC500C70 PO; +CALCCHW57 PO; +DRN400 PO; +LSX20 PO; +POLYCAP4 PO; +TRIATAB3 PO
--- NOTE | 2016-06-18 06:28 | PAP/PSG TECHNICIAN REPORT ---
[facility] Bag Machine Tender Polysomnogram Report Study name: None Report date: 06/18/2016 Study date: 06/17/2016 Referring Physician: Xavi Campbell M.D. Name: ARUN ANDREWS Interpreting Physician: Xavi Campbell M.D. Date of : 1935 Bag Machine Tender: Nafisa Rodrigues RPS. Sex: Female Age: 80 StudyType: PSG PAP Weight: 243 lbs Height: 80 years, Height 4' 10.25" BMI: 50.35 Medications: Asmaex, Aspirin 81 mg, Coumadin, Vitamin D, Multaq 400 mg, Percocet, Red Rice Yeast 600 mg, Triamterene-HCTZ 37.5-25 mg, Vitamin B Complex Patient History 80 yr. old female here for a new titration sleep study. Patient had a HST that showed an MANDIE of 8.2. Parameters Monitored NPSG: E1-M2, E2-M1, Fp1-M2, Fp2-M1, F3-M2, F4-M2, F4-M1, C3-M2, C4-M2, C4-M1, O1-M2, O2-M2, O2-M1, T3-M2, T4-M1, P3-M2, P4-M1, CHIN1, CHIN2, HR, EKG, Legs, PFLOW, SNOR, FLOW, CFLOW, Tidal Volume, THOR, ABDO, SpO2, PLTH, CPRESS, ETCO2 Wave, ETCO2, pH Sleep Architecture Sleep Stages Time at Lights Off 9:25:33 PM STAGES Time (min.) TST (%) Time at Lights On 5:23:03 AM Wake 252.5 -- Total Recording Time (TRT) 477.00 min. N1 43.5 19 Total Sleep Period (TSP) 401.5 min. N2 110.0 49 Total Sleep Time (TST) 224.5min. N3 26.5 12 Awake Time 252.5 min. REM 44.5 20 Wake after Sleep Onset 178.0 min. Sleep Efficiency (SE) 47 % Sleep Onset Latency (LAILA) 75.0 min. Number of Stage 1 Shifts None Awakenings 17 Stage Changes 63 Number of REM periods 4 REM 44.5 20 REM Latency 100.0 min. NREM 180.0 80 Body Position Analysis Supine Right Left Side Prone Vertical Total Sleep Time (min.) 0.0 0.0 0.0 0.00 0.0 477.0 Total Sleep Time (%) 0% 0% 0% 0 0% 100% Total Sleep Time REM (min.) 0.0 0.0 0.0 None 0.0 44.5 Total Sleep Time NREM (min.) 0.0 0.0 0.0 None 0.0 180.0 Intermittent Wake (min.) 0.0 0.0 0.0 None 0.0 252.5 Total Sleep Period (%) 0% None None None None None Arousals Myoclonus (PLM) * Events Count Index Events Count Index Spontaneous 11 3 Events Awake (PLMW) 126 29.9 Respiratory 6 2.1 Events Asleep w/ Arousal (PLMA) 6 1.6 PLM 6 2 Events Asleep w/o Arousal (PLMS) 46 12.3 Snoring 3 1 Total Asleep 52 13.9 Total 26 7 Total 178 22 Respiratory Analysis * CA OA MA CH H RERA Total Count 0 14 0 0 53 0 68 Index 0.0 3.7 0.0 0 14.2 0 18.2 Mean Duration 0.0 16.4 0.0 16.91 21.9 0.0 20.7 Longest Duration 0.0 24.4 0.0 16.91 0.0 0.0 49.2 Respiratory Event Summary Total Supine ~Supine Right Left Prone REM NREM Apneas Count 14 N/A 14 N/A N/A N/A 5 9 Index 3.7 N/A 4 N/A N/A N/A 7 3 Hypopneas (4% Desat) Count 53 N/A 53 N/A N/A N/A 18 35 Index 14.2 N/A 14 N/A N/A N/A 24.3 11.7 Apneas & All Hypopneas Count 68 N/A 68 N/A N/A N/A 24 44 Index 18.2 N/A 18 N/A N/A N/A 32.4 14.7 Respiratory Events (Shipyard Helper+All Hyp+RERA) Count 68 N/A 68 N/A N/A N/A 24 44 Index 18.2 N/A 18 N/A N/A N/A 32.4 14.7 Respiratory Related Arousal Count 6 N/A 8 N/A N/A N/A 6 2 Index 2.1 N/A 2 N/A N/A N/A 8 1 Snoring Analysis Supine Right Left Prone REM NREM Total Snore duration 1.3 min Snores count N/A N/A N/A N/A 6 43 49 Snore mean duration 1.6 Sec Snores index N/A N/A N/A N/A 8.1 14.3 13.1 TST with snoring (%) 0.6% Desaturation Event Summary: Minimum %SpO2 Event Count Mean/Min/Max Duration(sec.) Desaturation Index % Time In Bed > 90 69 22.3 / 7.0 / 54.0 10.5 85.5 86 - 90 2 26.3 / 7.3 / 45.3 1.9 13.6 81 - 85 2 32.4 / 19.5 / 45.3 42.8 0.6 76 - 80 1 19.5 / 19.5 / 19.5 46.3 0.3 71 - 75 0 N/A 0.0 0.0 66 - 70 0 N/A 0.0 0.0 61 - 65 0 N/A 0.0 0.0 56 - 60 0 N/A 0.0 0.0 51 - 55 0 N/A 0.0 0.0 < 50 0 N/A 0.0 0.0 Total REM NREM Awake <50% 0.0 min. 0.0 min. 0.0 min. 0.0 min. 51 - 60% 0.0 min. 0.0 min. 0.0 min. 0.0 min. 61 - 70% 0.0 min. 0.0 min. 0.0 min. 0.0 min. 71 - 80% 1.3 min. 0.8 min. 0.5 min. 0.0 min. 81 - 90% 65.2 min. 5.3 min. 45.4 min. 14.5 min. 91 - 100% 393.3 min. 38.3 min. 133.9 min. 221.1 min. Average 92 93 92 93 Minimum SpO2 76 76 76 82 Desaturation Event Index 9.1 24.3 12.7 4.0 # Desat. Events below 89% 8 5 1 2 Time(%) with Saturation below 89% 1.2 0.7 0.2 0.4 Time(min.) with Saturation below 89% 5.7 3.0 1.1 1.6 Time (mins) REM (mins) NREM (mins) % of TST SpO2 Below 90% 35 9 N26 4.4 SpO2 Below 88% 3 0 0 1 Heart Rate Analysis Min (bpm) Max (bpm) Average (bpm) Awake 53 141 64 NREM 54 78 59 REM 52 69 58 Overall 52 78 59 Supplemental O2 Values Minimum O2 level: None Value Start Time End Time Bag Machine Tender Comments MS. Andrews slept in the upright position. No cardiac arrhythmia. PLMs noted. No bruxism noted. CPAP was initiated at +4 CMH2O room air and up-titrated to a optimal level of + 13 [id number] Cflex. The study was started with a mirage FX nasal mask and was switched to a small [employer]nez [employer] Simplus. MS. Andrews did better with the full face mask.MS. Andrews awoke to use the restroom once during the night. MS. Andrews stated, "(Example) I did not sleep as well as I do when I am in my own bed". The final report will be interpreted and signed by a sleep physician. The completed physician report will then be placed in the patient medical record. Therapy Event: Therapy (cm H20) 4 5 6 7 8 9 10 11 12 13 Total Time at Pressure (min.) 125.2 33.3 12.0 10.1 165.1 51.1 13.2 22.1 9.3 35.8 TST at Pressure (min.) 20.7 33.3 12.0 10.1 53.1 38.6 13.2 20.6 9.3 13.8 # Periods 1 1 1 1 1 1 1 1 1 1 Sleep Onset (min.) 75.0 0.0 0.0 0.0 0.0 0.0 0.0 0.0 0.0 0.0 REM Onset (min.) N/A N/A N/A 4.5 0.0 N/A N/A 0.2 0.0 0.0 Sleep Efficiency % 16 100 100 100 32 75 100 93 100 38 Wakefulness (%) 83.5 0.0 0.0 0.0 67.8 24.5 0.0 6.8 0.0 61.4 Wakefulness (min.) 104.5 0.0 0.0 0.0 112.0 12.5 0.0 1.5 0.0 22.0 NREM 1 (%) 7.2 0.0 8.3 0.0 9.7 5.9 7.6 6.8 0.0 33.5 NREM 1 (min.) 9.0 0.0 1.0 0.0 16.0 3.0 1.0 1.5 0.0 12.0 NREM 2 (%) 9.3 41.5 33.1 44.9 13.1 69.6 92.4 23.4 0.0 4.2 NREM 2 (min.) 11.7 13.8 4.0 4.5 21.6 35.6 12.2 5.2 0.0 1.5 NREM 3 (%) 0.0 58.5 58.6 0.0 0.0 0.0 0.0 0.0 0.0 0.0 NREM 3 (min.) 0.0 19.5 7.0 0.0 0.0 0.0 0.0 0.0 0.0 0.0 REM (%) 0.0 0.0 0.0 55.1 9.4 0.0 0.0 63.0 100.0 1.0 REM (min.) 0.0 0.0 0.0 5.5 15.5 0.0 0.0 13.9 9.3 0.3 # Arousals 4 0 1 2 10 1 2 2 0 4 Arousal Index 11.6 0.0 5.0 11.9 11.3 1.6 9.1 5.8 0.0 17.3 # Snore 9 0 0 4 5 4 4 1 0 22 Snore Index 26.1 0.0 0.0 23.9 5.7 6.2 18.2 2.9 0.0 95.3 AHI 8.7 3.6 19.9 41.8 23.7 10.9 54.7 26.3 13.0 4.3 AHI Supine N/A N/A N/A N/A N/A N/A N/A N/A N/A N/A AHI Non-Supine 8.7 3.6 19.9 41.8 23.7 10.9 54.7 26.3 13.0 4.3 NREM AHI 8.7 3.6 19.9 13.3 16.0 10.9 54.7 36.1 N/A 4.4 REM AHI N/A N/A N/A 65.0 42.7 N/A N/A 21.6 13.0 0.0 RDI 8.7 3.6 19.9 41.8 23.7 10.9 54.7 26.3 13.0 4.3 # Obstructive 0 0 0 1 0 2 7 4 0 0 # Central Ap 0 0 0 0 0 0 0 0 0 0 # Mixed 0 0 0 0 0 0 0 0 0 0 # Hypopneas 3 2 4 5 21 5 5 5 2 1 RERAS 0 0 0 0 0 0 0 0 0 0 Total Respiratory Events 3 2 4 7 21 7 12 9 2 1 Time Below SpO2 89.00% (min.) 0.1 0.0 0.0 2.8 0.5 0.1 0.0 0.6 0.0 0.0 Mean NREM SpO2 (%) 90 91 91 89 92 93 93 95 N/A 95 Mean REM SpO2 (%) N/A N/A N/A 90 92 N/A N/A 94 95 97 Mean Sleep SpO2 (%) 90 91 91 89 92 93 93 95 95 95 Min NREM SpO2 (%) 88 89 89 76 89 88 89 91 N/A 93 Min REM SpO2 (%) N/A N/A N/A 76 82 N/A N/A 86 92 97 Position Supine (min.) 0.0 0.0 0.0 0.0 0.0 0.0 0.0 0.0 0.0 0.0 Position Non-supine (min.) 20.7 33.3 12.0 10.1 53.1 38.6 13.2 20.6 9.3 13.8 LM Index Sleep 14.5 23.4 0.0 0.0 18.1 12.4 0.0 2.9 19.5 26.0 LM Index NREM 14.5 23.4 0.0 0.0 22.3 12.4 0.0 9.0 N/A 26.7 LM Index REM N/A N/A N/A 0.0 7.8 N/A N/A 0.0 19.5 0.0 Mean Heart Rate (bpm) 63 60 59 61 60 57 57 56 55 57 Min Heart Rate (bpm) 59 58 57 55 55 54 55 52 53 55
--- NOTE | 2016-06-19 09:08 | POLYSOMNOGRAPH REPORT ---
CLINICAL DATA: A 80-year-old female with BMI of 50.35 referred by myself for CPAP titration study. She had a sleep study done which showed mild sleep apnea. It was done because of severe nocturnal hypoxemia seen on pulse oximetry during a stay at [facility]. Her baseline sleep study showed an MANDIE of 8.2. SLEEP ARCHITECTURE: Total sleep period was 401.5 minutes. Total sleep time was 224.5 minutes divided between 180 minutes of non-REM sleep and 44.5 minutes of REM sleep. Sleep onset latency was delayed at 75 minutes. REM latency was 100 minutes. Sleep efficiency was reduced at 47%. Wake after sleep onset was 178 minutes. Sleep consisted of stage N1 19%, N2 49%, N3 12%, and REM 20%. AROUSAL DATA: Twenty-six arousals were recorded for an index of 7 per hour. PLM DATA: Fifty-two limb movements during sleep were noted for an index of 13.9 per hour with arousal index of 1.6 per hour. RESPIRATORY DATA: The AHI was 18.2. There were 14 obstructive apneic episodes. The longest duration of apnea was 24 seconds. There were 53 hypopneic episodes. The mean duration of hypopnea was 21.9 seconds. OXIMETRY DATA: Severe nocturnal hypoxemia was seen. Oxygen larua of 76%, the mean saturation was 92%. Time below 88% was 3 minutes. EKG: Heart rates ranged from 54 to 78 beats per minute. No arrhythmias were noted. AIRCRAFT HYDRAULIC EQUIPMENT MECHANIC'S COMMENTS AND TREATMENT SUMMARY: The patient slept upright. She used Mirage FX nasal mask and then was switched to a small [employer] Simplus mask. She was titrated up to her final pressure setting of 13 cm water pressure. At the final pressure setting, she slept for 13.8 minutes with an AHI of 4. She did have correction of her nocturnal hypoxemia with CPAP. IMPRESSION: Obstructive sleep apnea, severe nocturnal hypoxemia corrected with CPAP at 13 cm of water pressure, small Mart[employer] Simplus mask. RECOMMENDATIONS: The patient will be started on treatment and seen back in followup to document efficacy and compliance. [facility]
== END | disposition home or self-care (01) ==
LOC: C.NEUR 20:00
PROVIDERS: ATTEND Internal Medicine Pulmonary Disease
DX: G47.34 Idiopathic sleep related nonobstructive alveolar hypoventilation (principal); G47.33 Obstructive sleep apnea (adult) (pediatric)

== ENCOUNTER → 2016-06-19 | Outpatient (CLI) | payer OTHER, BC ==
[2016-06-19 14:51] LABS: MANUAL MICROSCOPIC REQUIRED? NO; REVIEW REQ? YES; URINE APPEARANCE CLOUDY (CLEAR); URINE BILIRUBIN NEG (NEG); URINE COLOR YELLOW; URINE EPITHELIAL CELL AUTO >30 /lpf (0-5); URINE NITRITE NEG (NEG); URINE PH 5.5 (4.5-7.5); URINE SPECIFIC GRAVITY 1.023 (1.000-1.030); UROBILINOGEN NEG (NEG); ZZUR CULT IF INDIC CLEAN CATCH YES
== END | disposition home or self-care (01) ==
LOC: C.LAB1850 13:39
PROVIDERS: ATTEND Internal Medicine Pulmonary Disease
DX: G47.34 Idiopathic sleep related nonobstructive alveolar hypoventilation (principal); G47.33 Obstructive sleep apnea (adult) (pediatric); R10.9 Unspecified abdominal pain

== ENCOUNTER → 2016-12-03 | Outpatient (CLI) | payer OTHER, BC ==
[~2016-12-03] MED LIST changes: -APIX1TAB3 PO; -CALC500C70 PO; -CALCCHW57 PO; -DRN400 PO; -LSX20 PO; -POLYCAP4 PO; -TRIATAB3 PO
[2016-12-03 15:31] LABS: BASO % 0.8 %; BASO ABS # 0.06 K/uL (0-0.2); COMPLETE YES; HEMATOCRIT 33.6 % (37-47); IG% 0.5 %; LYMPH % 15.5 %; MEAN CELL VOLUME 93.1 fL (80-100); MEAN CORPUSCULAR HEMOGLOBIN 30.2 pg (25-34); MEAN CORPUSCULAR HGB CONC 32.4 g/dl (32-36); MEAN PLATELET VOLUME 10.5 fL (7.4-10.4); MONO % 7.1 %; NEUT % 75.1 %; PLATELET COUNT 216 K/uL (130-400); RED BLOOD COUNT 3.61 M/uL (4.2-5.4); WHITE BLOOD COUNT 7.75 K/uL (4.8-10.8)
[2016-12-03 16:00] LABS: ALT/SGPT 16 U/L (12-78); AST/SGOT 13 U/L (15-37); BLOOD UREA NITROGEN 24 mg/dl (7-18); BUN/CREATININE RATIO 26.9 (10-20); CARBON DIOXIDE 25 mmol/L (21-32); CHLORIDE 105 mmol/L (98-107); CREATININE 0.89 mg/dl (0.60-1.20); GLUCOSE 85 mg/dl (70-99); SODIUM 139 mmol/L (136-145)
[2016-12-03 16:05] LABS: ALB/GLOB RATIO 0.7 (0.9-2); ALKALINE PHOSPHATASE 84 U/L (45-117); FERRITIN 10.1 ng/ml (8.0-388.0)
== END | disposition home or self-care (01) ==
LOC: C.LAB1850 14:19
PROVIDERS: ATTEND Internal Medicine Cardiovascular Disease
DX: D64.9 Anemia, unspecified (principal); D50.9 Iron deficiency anemia, unspecified

== ENCOUNTER 2016-12-09 12:31 | Emergency (ER) | payer OTHER, BC ==
[~2016-12-09] VITALS: Ht 152.4 cm; Wt 121.6 kg
[2016-12-09 12:31] VITALS: TEMP 36.7; Ht 152.4 cm; Wt 121.6 kg
[2016-12-09] MEDS ORDERED: CALC500C70 PO (13:25)
[2016-12-09] MEDS ORDERED: POLYCAP4 PO (13:25)
[2016-12-09] MEDS ORDERED: LSX20 PO (13:25)
[2016-12-09] MEDS ORDERED: APIX1TAB3 PO (13:25)
[2016-12-09 13:57] LABS: BASO % 0.3 %; BASO ABS # 0.03 K/uL (0-0.2); COMPLETE YES; EOS % 0.6 %; HEMATOCRIT 33.1 % (37-47); IG% 0.2 %; LYMPH % 11.5 %; LYMPH ABS # 1.12 K/uL (1.2-3.4); MEAN CELL VOLUME 92.7 fL (80-100); MEAN CORPUSCULAR HGB CONC 30.2 g/dl (32-36); MEAN PLATELET VOLUME 10.5 fL (7.4-10.4); MONO % 7.9 %; NEUT % 79.5 %; PLATELET COUNT 181 K/uL (130-400); RED BLOOD COUNT 3.57 M/uL (4.2-5.4); WHITE BLOOD COUNT 9.77 K/uL (4.8-10.8)
[2016-12-09 14:07] LABS: INR 1.1 (0.9-1.1); PARTIAL THROMBOPLASTIN RATIO 1.2; PROTHROMBIN TIME (PATIENT) 11.7 SECONDS (9.0-12.0)
[2016-12-09 14:16] LABS: BUN/CREATININE RATIO 27.5 (10-20); CREATININE 0.81 mg/dl (0.60-1.20)
--- NOTE | 2016-12-09 14:52 | DIAGNOSTIC IMAGING REPORT ---
THORACIC SPINE 3 VIEWS CLINICAL HISTORY: Thoracic back pain. FINDINGS: AP, lateral, and swimmer's views of the thoracic spine are correlated with lateral chest x-ray dated 01/31/2016. The skeletal structures are osteopenic. There is no radiographic evidence of fracture or malalignment. Vertebral body height and alignment are maintained. Anterior osteophytes are seen throughout. The transverse processes and pedicles are grossly intact as seen on the frontal view. Multilevel degenerative disc space narrowing is noted. The heart is enlarged. There is evidence of previous valve surgery. Cholecystectomy clips are identified. The lung parenchyma is clear as imaged. IMPRESSION: Osteopenia and degenerative change as above. No acute bony abnormality is identified in the thoracic spine. Electronically signed by: Víctor Walker M.D. 12/09/2016 2:50 PM Dictated Date/Time: 12/09/2016 2:38 PM
--- NOTE | 2016-12-09 14:53 | DIAGNOSTIC IMAGING REPORT ---
CHEST 2 VIEWS ROUTINE CLINICAL HISTORY: back grayson eval for pnea dyspnea COMPARISON STUDY: 02/27/2016 FINDINGS: Moderate stable cardia megaly. Postoperative change is been previously described. Components of congestive failure are noted. Upper lungs are clear. IMPRESSION: Mild congestive failure The above report was generated using voice recognition software. It may contain grammatical, syntax or spelling errors. Electronically signed by: Lio Valera M.D. 12/09/2016 2:51 PM Dictated Date/Time: 12/09/2016 2:50 PM
[2016-12-09] MEDS ORDERED: ONDANSETRON INJ 2 MG/ML 2 ML VIAL IV STA (14:58)
[2016-12-09] MEDS ORDERED: MoRPHine SULFATE 4 MG/ML 1 ML CARP\\VIAL IV STA (14:58)
--- NOTE | 2016-12-09 16:09 | DIAGNOSTIC IMAGING REPORT ---
(CHEST) THORAX WITHOUT CT DOSE: 650.43 mGycm CLINICAL HISTORY: 81 years-old Female with back pain. Acute back pain without reported trauma. Initial exam. TECHNIQUE: Multiaxial CT images of the chest were performed without contrast. A dose lowering technique was utilized adhering to the principles of ALARA. COMPARISON: CT chest 11/22/2014. FINDINGS: Thyroid is heterogeneous without dominant nodule identified. No pathologic adenopathy about the chest identified. Multichamber at least moderate cardiac enlargement. Prosthetic graft of the aortic valve noted. Three-vessel distribution coronary arterial disease. Mild average chronic plaquing of the thoracic aorta without aneurysm identified. Dilation of the main pulmonary artery, 3.4 cm in dilation of the right ventricle suggests pulmonary arterial hypertension with right heart failure. Trace left pleural effusion. No pneumothorax. Hazy groundglass opacities of the lower lobes and lingula. There is a mosaic attenuation suggests some air trapping. 3 mm pleural-based nodule of the lateral basal segment right lower lobe is seen on image 143 of series 4, unchanged from comparison compatible with benign etiology. 4 mm nodule of the superior segment right lower lobe on image 94 of series 4 also appears unchanged, compatible with benign etiology. 4 mm perifissural lymph node is seen on image 114 of series 4. Calcifications of the tracheobronchial tree are noted. Central airways are patent. Mild respiratory motion limits the study. Prior cholecystectomy. Low attenuating lesion of the superior pole left kidney, 1.6 cm suggests cyst. Patient obesity noted. Bones appear intact. Multilevel endplate spurring, facet arthrosis and intervertebral disc space narrowing of the thoracic spine. Moderate size Schmorl's node involves the superior endplate T12. Background osteopenia. IMPRESSION: 1. Trace left pleural effusion with dependent subsegmental bibasilar and lingular opacities suggesting atelectasis. Mild associated mosaic attenuation of the bilateral lungs suggests some air trapping. 2. Moderate cardiomegaly with probable pulmonary arterial hypertension. 3. Additional findings as above. Electronically signed by: Davide Alvarenga M.D. 12/09/2016 4:08 PM Dictated Date/Time: 12/09/2016 4:01 PM
--- NOTE | 2016-12-09 16:16 | DIAGNOSTIC IMAGING REPORT ---
THORACIC SPINE WITHOUT CLINICAL HISTORY: Back pain. Evaluate for fracture. COMPARISON STUDY: Chest CT November 22, 2014 and thoracic spine radiographs performed earlier today. FINDINGS: Alignment of the thoracic spine is anatomic. No acute thoracic spine fracture is identified. Mild loss of height of the superior plate of T12 is unchanged since exam of November 22, 2014. There is mild multilevel disc space narrowing with moderate osteophytosis. Posterior osteophytes at the T7-T8 level result in mild narrowing of the left aspect of the canal. Central canal and neural foramen are suboptimally assessed by CT. The chest CT will be reported separately. A small left pleural effusion is noted. IMPRESSION: 1. No acute thoracic spine fracture or subluxation. 2. Mild superior endplate compression deformity of T12 which is unchanged since CT of November 22, 2014. 3. 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 Mild central canal stenosis at this level. Electronically signed by: Broderick Treadwell M.D. 12/09/2016 4:14 PM Dictated Date/Time: 12/09/2016 4:07 PM
--- NOTE | 2016-12-09 16:23 | DIAGNOSTIC IMAGING REPORT ---
BILATERAL LOWER EXTREMITY VENOUS DOPPLER HISTORY: Acute right lower extremity pain and swelling. eval for dvt COMPARISON STUDY: Duplex ultrasound 02/28/2016. FINDINGS: There is normal compressibility, flow, and augmentation within the bilateral lower extremity deep venous systems. IMPRESSION: No sonographic evidence of deep venous thrombosis within the right or left lower extremity. Electronically signed by: Davide Alvarenga M.D. 12/09/2016 4:21 PM Dictated Date/Time: 12/09/2016 4:20 PM
--- NOTE | 2016-12-09 16:47 | EMERGENCY ROOM VISIT NOTE ---
History Report prepared by Paulo: Melody Smith Under the Supervision of: Dr. Julio Herrera M.D. First contact with patient: 12:39 Chief Complaint: BACK PAIN Stated Complaint: back pain History of Present Illness The patient is a 81 year old female who presents to the Emergency Room with complaints of worsening mid-upper back pain for the past 2 days. The patient states that she took her first dose of Lasix 2 days ago. Her back pain started after taking this medication. Her pain is located between her shoulder blades. She states that her pain has been constant and progressively worsening. The patient describes her pain as sharp. It is not worsened with movement or breathing. She has been coughing and sneezing lately. The patient denies headache, shortness of breath, and recent trauma or falls. She had some left- sided abdominal pain this morning, as well as some tingling in the right hand. Both of these symptoms have resolved. Source of History: patient Onset: 2 days ago Position: back (upper) Quality: sharp Timing: constant, worsening Associated Symptoms: No headache, No SOB, No weakness, No numbness Note: Pt denies recent trauma or falls. Review of Systems See HPI for pertinent positives & negatives. A total of 10 systems reviewed and were otherwise negative. Past Medical & Surgical Medical Problems: (1) A-fib (2) Anemia (3) Anemia (4) Anemia (5) Anemia (6) Asthma (7) Bursitis of shoulder, left (8) Hyperparathyroidism (9) Left knee DJD (10) Radicular pain in left arm (11) UTI (lower urinary tract infection) Family History No significant family history Social History Smoking Status: Never Smoker Alcohol Use: none Drug Use: none Marital Status: Housing Status: lives alone Occupation Status: retired Current/Historical Medications Scheduled Apixaban (Eliquis), 5 MG PO BID Aspirin (Aspirin Ec), 81 MG PO DAILY Calcium/Vitamin D (Os-Khoi 500 Plus D), 1 TAB PO DAILY Dronedarone Hcl (Multaq), 200 MG PO BID Furosemide (Furosemide), 20 MG PO DIRECTED Mometasone Furoate (Asmanex Twisthaler 60 Met), 1 PUFF INH BID Polysaccharide Iron Complex (Iferex 150), 150 MG PO DAILY Red Yeast Rice Extract (Red Yeast Rice), 600 MG PO BID Allergies Coded Allergies: Adhesives (Unverified Allergy, Mild, RASH, 02/27/16) Nitrofurantoin (Unverified Allergy, Mild, RASH, 02/27/16) Sulfa Antibiotics (Verified Allergy, Mild, "sulfa drugs", 02/28/16) Iodinated Diagnostic Agents (Unverified Allergy, Unknown, RASH, 02/27/16) Uncoded Allergies: TINCTURES (Allergy, Mild, RASH, 12/02/15) Physical Exam Vital Signs Date Time Temp Pulse Resp B/P (MAP) Pulse Ox O2 Delivery O2 Flow Rate FiO2 12/09/16 15:28 71 20 172/85 96 Room Air 12/09/16 14:06 65 23 92 12/09/16 13:36 71 26 94 12/09/16 13:06 69 18 94 12/09/16 13:01 69 18 97 12/09/16 12:47 214/96 12/09/16 12:46 76 12/09/16 12:31 36.7 70 24 214/96 95 Room Air Physical Exam Constitutional: Vital signs reviewed. Eyes: Pupils are equal round reactive to light. Conjunctiva are noninjected. ENT: Pharynx is clear without erythema or exudate. Mucous membranes are moist. Neck supple without meningeal signs. Respiratory: Clear to auscultation bilaterally. Breath sounds are equal bilaterally. Cardiovascular: Regular rate and rhythm. No rubs or gallops. GI: Soft, nondistended and nontender. Bowel sounds are present. No pulsatile masses. Musculoskeletal: She has midline tenderness to the mid-thoracic spine without step-off. Bilateral lower extremity edema. Integumentary: No cyanosis. Neurological: The patient is awake and alert. No focal deficits. Psychiatric: Normal affect. Medical Decision & Procedures ER Provider Diagnostic Interpretation: Radiology results as stated below per my review and the radiologist's interpretation: THORACIC SPINE 3 VIEWS CLINICAL HISTORY: Thoracic back pain. FINDINGS: AP, lateral, and swimmer's views of the thoracic spine are correlated with lateral chest x-ray dated 01/31/2016. The skeletal structures are osteopenic. There is no radiographic evidence of fracture or malalignment. Vertebral body height and alignment are maintained. Anterior osteophytes are seen throughout. The transverse processes and pedicles are grossly intact as seen on the frontal view. Multilevel degenerative disc space narrowing is noted. The heart is enlarged. There is evidence of previous valve surgery. Cholecystectomy clips are identified. The lung parenchyma is clear as imaged. IMPRESSION: Osteopenia and degenerative change as above. No acute bony abnormality is identified in the thoracic spine. Electronically signed by: Víctor Walker M.D. 12/09/2016 2:50 PM Dictated Date/Time: 12/09/2016 2:38 PM CHEST 2 VIEWS ROUTINE CLINICAL HISTORY: back grayson eval for pnea dyspnea COMPARISON STUDY: 02/27/2016 FINDINGS: Moderate stable cardia megaly. Postoperative change is been previously described. Components of congestive failure are noted. Upper lungs are clear. IMPRESSION: Mild congestive failure The above report was generated using voice recognition software. It may contain grammatical, syntax or spelling errors. Electronically signed by: Lio Valera M.D. 12/09/2016 2:51 PM Dictated Date/Time: 12/09/2016 2:50 PM BILATERAL LOWER EXTREMITY VENOUS DOPPLER HISTORY: Acute right lower extremity pain and swelling. eval for dvt COMPARISON STUDY: Duplex ultrasound 02/28/2016. FINDINGS: There is normal compressibility, flow, and augmentation within the bilateral lower extremity deep venous systems. IMPRESSION: No sonographic evidence of deep venous thrombosis within the right or left lower extremity. Electronically signed by: Davide Alvarenga M.D. 12/09/2016 4:21 PM Dictated Date/Time: 12/09/2016 4:20 PM THORACIC SPINE WITHOUT CLINICAL HISTORY: Back pain. Evaluate for fracture. COMPARISON STUDY: Chest CT November 22, 2014 and thoracic spine radiographs performed earlier today. FINDINGS: Alignment of the thoracic spine is anatomic. No acute thoracic spine fracture is identified. Mild loss of height of the superior plate of T12 is unchanged since exam of November 22, 2014. There is mild multilevel disc space narrowing with moderate osteophytosis. Posterior osteophytes at the T7-T8 level result in mild narrowing of the left aspect of the canal. Central canal and neural foramen are suboptimally assessed by CT. The chest CT will be reported separately. A small left pleural effusion is noted. IMPRESSION: 1. No acute thoracic spine fracture or subluxation. 2. Mild superior endplate compression deformity of T12 which is unchanged since CT of November 22, 2014. 3. 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 Mild central canal stenosis at this level. Electronically signed by: Broderick Treadwell M.D. 12/09/2016 4:14 PM Dictated Date/Time: 12/09/2016 4:07 PM (CHEST) THORAX WITHOUT CT DOSE: 650.43 mGycm CLINICAL HISTORY: 81 years-old Female with back pain. Acute back pain without reported trauma. Initial exam. TECHNIQUE: Multiaxial CT images of the chest were performed without contrast. A dose lowering technique was utilized adhering to the principles of ALARA. COMPARISON: CT chest 11/22/2014. FINDINGS: Thyroid is heterogeneous without dominant nodule identified. No pathologic adenopathy about the chest identified. Multichamber at least moderate cardiac enlargement. Prosthetic graft of the aortic valve noted. Three-vessel distribution coronary arterial disease. Mild average chronic plaquing of the thoracic aorta without aneurysm identified. Dilation of the main pulmonary artery, 3.4 cm in dilation of the right ventricle suggests pulmonary arterial hypertension with right heart failure. Trace left pleural effusion. No pneumothorax. Hazy groundglass opacities of the lower lobes and lingula. There is a mosaic attenuation suggests some air trapping. 3 mm pleural-based nodule of the lateral basal segment right lower lobe is seen on image 143 of series 4, unchanged from comparison compatible with benign etiology. 4 mm nodule of the superior segment right lower lobe on image 94 of series 4 also appears unchanged, compatible with benign etiology. 4 mm perifissural lymph node is seen on image 114 of series 4. Calcifications of the tracheobronchial tree are noted. Central airways are patent. Mild respiratory motion limits the study. Prior cholecystectomy. Low attenuating lesion of the superior pole left kidney, 1.6 cm suggests cyst. Patient obesity noted. Bones appear intact. Multilevel endplate spurring, facet arthrosis and intervertebral disc space narrowing of the thoracic spine. Moderate size Schmorl's node involves the superior endplate T12. Background osteopenia. IMPRESSION: 1. Trace left pleural effusion with dependent subsegmental bibasilar and lingular opacities suggesting atelectasis. Mild associated mosaic attenuation of the bilateral lungs suggests some air trapping. 2. Moderate cardiomegaly with probable pulmonary arterial hypertension. 3. Additional findings as above. Electronically signed by: Davide Alvarenga M.D. 12/09/2016 4:08 PM Dictated Date/Time: 12/09/2016 4:01 PM Laboratory Results 12/09/16 13:46 Red Blood Count 3.57, Mean Corpuscular Volume 92.7, Mean Corpuscular Hemoglobin 28.0, Mean Corpuscular Hemoglobin Concent 30.2, Mean Platelet Volume 10.5, Neutrophils (%) (Auto) 79.5, Lymphocytes (%) (Auto) 11.5, Monocytes (%) (Auto) 7.9, Eosinophils (%) (Auto) 0.6, Basophils (%) (Auto) 0.3, Neutrophils # (Auto) 7.77, Lymphocytes # (Auto) 1.12, Monocytes # (Auto) 0.77, Eosinophils # (Auto) 0.06, Basophils # (Auto) 0.03 12/09/16 13:46 Test 12/09/16 13:46 12/09/16 13:54 White Blood Count 9.77 K/uL (4.8-10.8) Red Blood Count 3.57 M/uL (4.2-5.4) Hemoglobin 10.0 g/dL (12.0-16.0) Hematocrit 33.1 % (37-47) Mean Corpuscular Volume 92.7 fL (80-100) Mean Corpuscular Hemoglobin 28.0 pg (25-34) Mean Corpuscular Hemoglobin Concent 30.2 g/dl (32-36) Platelet Count 181 K/uL (130-400) Mean Platelet Volume 10.5 fL (7.4-10.4) Neutrophils (%) (Auto) 79.5 % Lymphocytes (%) (Auto) 11.5 % Monocytes (%) (Auto) 7.9 % Eosinophils (%) (Auto) 0.6 % Basophils (%) (Auto) 0.3 % Neutrophils # (Auto) 7.77 K/uL (1.4-6.5) Lymphocytes # (Auto) 1.12 K/uL (1.2-3.4) Monocytes # (Auto) 0.77 K/uL (0.11-0.59) Eosinophils # (Auto) 0.06 K/uL (0-0.5) Basophils # (Auto) 0.03 K/uL (0-0.2) RDW Standard Deviation 56.6 fL (36.4-46.3) RDW Coefficient of Variation 16.9 % (11.5-14.5) Immature Granulocyte % (Auto) 0.2 % Immature Granulocyte # (Auto) 0.02 K/uL (0.00-0.02) Prothrombin Time 11.7 SECONDS (9.0-12.0) Prothromb Time International Ratio 1.1 (0.9-1.1) Activated Partial Thromboplast Time 31.5 SECONDS (21.0-31.0) Partial Thromboplastin Ratio 1.2 Anion Gap 7.0 mmol/L (3-11) Est Creatinine Clear Calc Drug Dose 67.5 ml/min Estimated GFR () 80.1 Estimated GFR (Non- 69.1 BUN/Creatinine Ratio 27.5 (10-20) Calcium Level 9.0 mg/dl (8.5-10.1) Total Bilirubin 0.9 mg/dl (0.2-1) Direct Bilirubin 0.2 mg/dl (0-0.2) Aspartate Amino Transf (AST/SGOT) 12 U/L (15-37) Alanine Aminotransferase (ALT/SGPT) 14 U/L (12-78) Alkaline Phosphatase 81 U/L (45-117) Total Protein 7.6 gm/dl (6.4-8.2) Albumin 3.3 gm/dl (3.4-5.0) Bedside Troponin I 0.030 ng/ml (0-0.045) Laboratory results as reviewed by me. Medications Administered Medications (Trade) Dose Ordered Sig/Stewart Route Start Time Stop Time Status Last Admin Dose Admin Morphine Sulfate (MoRPHine SULFATE INJ) 4 mg NOW STAT IV 12/09/16 14:58 12/09/16 15:02 DC 12/09/16 15:27 4 MG Ondansetron HCl (Zofran Inj) 4 mg NOW STAT IV 12/09/16 14:58 12/09/16 15:02 DC 12/09/16 15:27 4 MG ECG Indication: back/shoulder pain Rate (beats per minute): 69 Rhythm: normal sinus Findings: LBBB, no ectopy ED Course 1239: The patient was evaluated in room B9. A complete history and physical exam was performed. 1457: I reevaluated the patient and she has had slight improvement of her back pain. Her pressure is 171/91. 1458: Zofran 4 mg IV, Morphine sulfate 4 mg IV 1629: I reassessed the patient at this time. She is feeling better and resting comfortably. I discussed the results and treatment plan with the patient. I answered all pertaining questions that she had. She expressed understanding and verbalized agreement. The patient will be discharged home. Medical Decision This is a 81-year-old female who presents with upper back pain. Differential diagnosis includes compression fracture, strain, intervertebral disc disease, aortic dissection, pulmonary embolism. I did perform a limited focused review of portions of the patient's old chart on the electronic medical record. The patient has had no recent pertinent visits to this hospital. I did evaluate the patient as noted above. Patient is presenting with upper back pain starting 2 days ago. She does have tenderness to the midthoracic spine. She denies any fevers. She denies any chest pain or shortness of breath. She did have some tingling to the right hand which has subsequently resolved. She denies having any neck pain. IV access was established. The patient was placed on a continuous monitor technician. I did order and personally review the patient's 12-lead EKG and chest/thoracic spine x-ray as described above. I did order and review the patient's blood work as noted in the electronic medical record. He has some mild anemia. I did obtain Dopplers of her lower extremities a rule out DVT. These are both negative. I did order a CT of the chest and thoracic spine. I did review the images myself as well as the radiology report as described above. She does have degenerative changes to her thoracic spine and spinal stenosis. I did discuss the testicles with the patient. She was treated with IV morphine and Zofran. She does feel better on reevaluation. She was advised to take anti-inflammatories for pain and to follow closely with her doctor for further evaluation. She was given return instructions as outlined below. Medication Reconcilliation Current Medication List: was personally reviewed by me Blood Pressure Screening Patient's blood pressure: Elevated blood pressure Blood pressure disposition: Referred to PCP Impression Primary Impression: Thoracic back pain Additional Impression: Paresthesia Scribe Attestation The scribe's documentation has been prepared under my direct and personally reviewed by me in its entirety. I confirm that the note above accurately reflects all work, treatment, procedures, and medical decision making performed by me. Departure Information Dispostion Home / Self-Care Referrals Xavi Campbell M.D. (PCP) Forms HOME CARE DOCUMENTATION FORM, IMPORTANT VISIT INFORMATION Patient Instructions Back Pain - [facility], [facility] Additional Instructions You have been examined and treated today on an emergency basis only. This is not a substitute for, or an effort to provide, complete comprehensive medical care. It is impossible to recognize and treat all injuries or illnesses in a single emergency department visit. It is therefore important that you follow up closely with your physician. Call as soon as possible for an appointment. Return for worsening symptoms or if you develop fever, vomiting, abdominal pain , chest pain, loss of control of your bowel or bladder, numbness or weakness to your arms or legs, numbness to your private area, difficulty urinating, or any other concerning symptoms. Problem Qualifiers Primary Impression: Thoracic back pain Chronicity: acute Back pain laterality: midline Qualified Codes: M54.6 - Pain in thoracic spine
[2016-12-09 17:09] VITALS: BP 161/79; PULSE 72; O2SAT 97
== END 2016-12-09 17:09 | disposition home or self-care (01) ==
LOC: EDBD 12:31 → C.EDB 12:32
DX: M54.6 Pain in thoracic spine (principal); R20.2 Paresthesia of skin; I48.91 Unspecified atrial fibrillation; D64.9 Anemia, unspecified; E21.3 Hyperparathyroidism, unspecified; M17.12 Unilateral primary osteoarthritis, left knee; Z79.82 Long term (current) use of aspirin

== ENCOUNTER 2017-01-15 16:56 | Emergency (ER) | payer OTHER, BC ==
[~2017-01-15] VITALS: Ht 152.4 cm; Wt 120.0 kg
[~2017-01-15 16:56] MED LIST changes: +APIX1TAB3 PO; +CALC500C70 PO; -CALC600T37 PO; -CHOL100027 PO; -CMD5 PO; -FURO-85 PO; +LSX20 PO; +POLYCAP4 PO; -TRAM-10 PO
[2017-01-15 17:10] VITALS: TEMP 36.7; Ht 152.4 cm; Wt 120.0 kg
[2017-01-15] MEDS ORDERED: OXYMETAZOLINE HCL 0.05% NA SPR 15 ML BTL ONE (17:13)
[2017-01-15] MEDS ORDERED: TRIATAB3 PO (17:23)
[2017-01-15] MEDS ORDERED: CALCCHW57 PO (17:23)
[2017-01-15 17:28] VITALS: O2SAT 95
[2017-01-15] MEDS ORDERED: DRN400 PO (17:29)
[2017-01-15 17:52] VITALS: BP 145/73; PULSE 60; O2SAT 96
--- NOTE | 2017-01-15 19:25 | EMERGENCY ROOM VISIT NOTE ---
History Report prepared by Paulo: Wesley Stewart Under the Supervision of: Dr. Adebayo Oconnell D.O. First contact with patient: 17:04 Stated Complaint: NOSE BLEED History of Present Illness The patient is a 81 year old female who presents to the Emergency Room with complaints of intermittent nose bleeds for the past 4 weeks, and she states that she had a nose bleed today mostly out of her left nares. The patient states that all of this symptoms started after she started using a CPAP. She notes that she is currently on Eliquis for A Fib, and she used to take a baby aspirin as well. She notes that today her nose bleed occurred around 1400, and then it stopped but recurred after about 30 minutes being stopped. She notes that she talked to her PCP, and they told her to come to the ED for evaluation. Pt denies headache, change in vision, fevers, chest pain, shortness of breath, nausea, vomiting, diarrhea, pain with urination, and melena. Source of History: patient Onset: four weeks ago Position: nose Quality: other (bleed) Timing: intermittent Associated Symptoms: No fevers, No chest pain, No SOB, No nausea, No vomiting, No abdominal pain, No weakness Review of Systems See HPI for pertinent positives & negatives. A total of 10 systems reviewed and were otherwise negative. Past Medical & Surgical Medical Problems: (1) A-fib (2) Anemia (3) Anemia (4) Anemia (5) Anemia (6) Asthma (7) Bursitis of shoulder, left (8) Hyperparathyroidism (9) Left knee DJD (10) Radicular pain in left arm (11) UTI (lower urinary tract infection) Family History No significant family history Social History Smoking Status: Never Smoker Alcohol Use: none Drug Use: none Marital Status: Housing Status: lives alone Occupation Status: retired Current/Historical Medications Scheduled Apixaban (Eliquis), 5 MG PO BID Calcium Carbonate-Vitamin D W/ (Calcium 1200), 1,200 MG PO QAM Dronedarone (Multaq), 200 MG PO QPM Dronedarone Hcl (Multaq), 400 MG PO QAM Mometasone Furoate (Asmanex Twisthaler 60 Met), 1 PUFF INH BID Red Yeast Rice Extract (Red Yeast Rice), 600 MG PO BID Scheduled PRN Triamterene/Hctz (Triamterene/Hctz 37.5-25MG), 1 TAB PO DAILY PRN for FLUID RETENTION Allergies Coded Allergies: Adhesives (Verified Allergy, Mild, RASH, 01/15/17) Nitrofurantoin (Verified Allergy, Mild, RASH, 01/15/17) Sulfa Antibiotics (Verified Allergy, Mild, "sulfa drugs", 01/15/17) Iodinated Diagnostic Agents (Verified Allergy, Unknown, RASH, 01/15/17) Uncoded Allergies: TINCTURES (Allergy, Mild, RASH, 12/02/15) Physical Exam Vital Signs Date Time Temp Pulse Resp B/P (MAP) Pulse Ox O2 Delivery O2 Flow Rate FiO2 01/15/17 17:52 60 18 145/73 96 Room Air 01/15/17 17:28 95 Room Air 01/15/17 17:11 64 01/15/17 17:10 36.7 74 18 179/66 96 Room Air Physical Exam GENERAL: Sitting up in bed, alert, well appearing, well nourished, no distress, non-toxic EYE EXAM: normal conjunctiva. OROPHARYNX: no exudate, no erythema, lips, buccal mucosa, and tongue normal and mucous membranes are moist NOSE: No bleeding in bilateral nares. Dry blood along the outer portion of the left nostril NECK: supple, no nuchal rigidity, no adenopathy, non-tender LUNGS: Clear to auscultation. Normal chest wall mechanics HEART: no murmurs, S1 normal and S2 normal ABDOMEN: abdomen soft, non-tender, normo-active bowel sounds, no masses, no rebound or guarding. UPPER EXTREMITIES: upper extremities are grossly normal. LOWER EXTREMITIES: No pitting edema. NEURO EXAM: Normal sensorium Medical Decision & Procedures ED Course ED COURSE: Vital signs were reviewed and showed hypertension The patients medical record was reviewed The above diagnostic studies were performed and reviewed. ED treatments and interventions as stated above. 1704: The patient was evaluated in room A12. A complete history and physical examination was performed. 1713: Afrin 0.05% Nasal [place] [facility] 1740: Upon reevaluation, the patient is doing well. Afrin was sprayed in bilateral nares. No active bleeding.I discussed my findings with the patient and she understands and agrees with the treatment plan. Based on the patients age, coexisting illnesses, exam and lab findings the decision to treat as an outpatient was made. The patient remained stable while under my care. The patient appeared well at the time of discharge. Medical Decision Differential diagnosis: Etiologies such as anterior epistaxis, coagulopathy, traumatic injury, fracture , septal hematoma, posterior epistaxis as well as other pathologies were entertained. Patient is a 81-year-old female on a 10 a inhibitor for A. fib who presents to ER with epistaxis. This has occurred on 2 separate days over the past week. Patient has recently started CPAP at night. It does have humidified oxygen with it. On my exam I saw no active bleeding. I did spray Afrin in bilateral nares. Nothing to cauterize at this time. She was monitored and in the ER for a total of over an hour. No recurrent bleeding. She was discharged with Afrin to use if the bleeding recurs with one spray and apply nasal clip. She is discharged with ENT follow-up as well. Discussed with Pt concerning signs and symptoms to watch out for. Pt was instructed to follow up with their PCP and discussed with the patient their option to return to the ED at anytime for persistent or worsening symptoms. The appropriate anticipatory guidance and out- patient management, including indications for return to the emergency department , were explained at length to the patient and understood. Medication Reconcilliation Current Medication List: was personally reviewed by me Blood Pressure Screening Patient's blood pressure: Elevated blood pressure Blood pressure disposition: Referred to PCP Impression Primary Impression: Epistaxis Scribe Attestation The scribe's documentation has been prepared under my direction and personally reviewed by me in its entirety. I confirm that the note above accurately reflects all work, treatment, procedures, and medical decision making performed by me. Departure Information Dispostion Home / Self-Care Referrals Xavi Campbell M.D. (PCP) Forms HOME CARE DOCUMENTATION FORM, IMPORTANT VISIT INFORMATION, WORK / SCHOOL INSTRUCTIONS Patient Instructions ED Nosebleed, My [facility] Additional Instructions Please follow up with your primary care doctor with in the next 24 hours. Any worsening of your symptoms, please return to the ED immediately. This includes any fevers greater than 100.4, dizziness or lightheadedness, recurrent bleeding or any other concerning signs or symptoms from your standpoint. If bleeding does recur please use 1 spray of Afrin into left nostril and apply a nasal clamp for 15 minutes. If bleeding does not stop after 15 minutes please return to the ER. If during that 15 minutes you have bleeding tracking down the back here throat please return to the ER. Apply Vaseline to bilateral nostrils/nares prior to bed. Use humidifier at night and throughout the day. Use the humidifier with your CPAP. Please follow up with ENT in the next week. You were found to have a blood pressure greater than 120 systolic over 90 diastolic. Due to the new Medicare guidelines, we are now recommending that you follow up with your primary care doctor in regards to this elevated blood pressure.
== END 2017-01-15 17:58 | disposition home or self-care (01) ==
LOC: EDBD 16:56 → C.EDA 16:59
DX: R04.0 Epistaxis (principal); Z79.01 Long term (current) use of anticoagulants; I48.91 Unspecified atrial fibrillation; Z79.82 Long term (current) use of aspirin; J45.909 Unspecified asthma, uncomplicated; E21.3 Hyperparathyroidism, unspecified; Z87.440 Personal history of urinary (tract) infections; M17.10 Unilateral primary osteoarthritis, unspecified knee; Z79.899 Other long term (current) drug therapy

== ENCOUNTER → 2017-04-08 | Outpatient (CLI) | payer OTHER, BC ==
[~2017-04-08] MED LIST changes: -ASPI81TA28 PO; -CALC500C70 PO; +CALCCHW57 PO; +DRN400 PO; -LSX20 PO; -POLYCAP4 PO; +TRIATAB3 PO
== END | disposition home or self-care (01) ==
LOC: C.LABSPEC 18:05
PROVIDERS: ATTEND Internal Medicine Cardiovascular Disease
DX: R30.0 Dysuria (principal)